=== PATIENT | female | born 1990 | race Caucasian/White ===

== ENCOUNTER → 2021-08-30 09:05 | Outpatient (BNVA) | payer OTHER, SELFPAY | PROVIDERS: Visit Provider Nurse Practitioner Women's Health | DX: O21.9 Vomiting of pregnancy, unspecified (principal); N92.6 Irregular menstruation, unspecified; Z3A.00 Weeks of gestation of pregnancy not specified | CPT/HCPCS: 81025 ==

== ENCOUNTER → 2021-09-27 09:35 | Outpatient (BNVA) | payer OTHER, SELFPAY | PROVIDERS: Visit Provider Obstetrics & Gynecology | DX: Z34.90 Encounter for supervision of normal pregnancy, unspecified, unspecified trimester (principal) | CPT/HCPCS: 80307; 84315; 85027; 86592; 86762; 86803; 86850; 86900; 87077; 87086; 87184; 87340; 87491; 87591 ==

== ENCOUNTER 2021-10-06 16:07 | Outpatient (CLI) | payer OTHER, SELFPAY ==
--- NOTE | 2021-10-06 16:00 | US_ITS ---
WS: [id number] ULTRASOUND OB LIMITED TECHNIQUE: Limited ultrasound examination of the fetus. CLINICAL INFORMATION: Z34.90 - Encounter for supervision of normal , u... COMPARISON: None. FINDINGS: Closed cervix measures 3.6 cm. Single interuterine gestation. presentation is transverse Placental location is fundal. Placenta grade: 0. heart rate 176 BPM. Placenta previa with complete coverage of the cervical os. Recommend 3rd trimester follow-up. Anatomy: BDP: 2.5 cm = 14w2d HC: 9.6 cm = 14w3d AC: 7.5 cm = 14w0d FEMUR LENGTH: 1.3 cm = 13w6d Estimated weight: 87 g., %. EGA by ultrasound: 14w1d NAYANA by ultrasound: 04/05/2022 US/US OB <= 14 weeks fetus [id number] IMPRESSION: 1. Presentation is transverse with complete placenta previa. Leads coverage of the cervical os. Placenta is fundal. Recommend 3rd trimester follow-up. 2. Normal LEFT ovary. RIGHT ovary not visualized. 3. Small amount of free fluid in the RIGHT adnexa. Small amount of fluid about the LEFT ovary. 4. Estimated gestational age 14 weeks 1 day. Estimated delivery April 05 023.
== END 2021-10-06 16:08 | disposition home or self-care (01) ==
PROVIDERS: Absent Provider Obstetrics & Gynecology; Visit Provider Obstetrics & Gynecology
DX: Z34.92 Encounter for supervision of normal pregnancy, unspecified, second trimester; Z3A.14 14 weeks gestation of pregnancy
CPT/HCPCS: 76801

== ENCOUNTER → 2021-10-28 13:36 | Outpatient (BNVA) | payer OTHER, SELFPAY | PROVIDERS: Visit Provider Nurse Practitioner Women's Health | DX: O09.899 Supervision of other high risk pregnancies, unspecified trimester (principal); O34.219 Maternal care for unspecified type scar from previous cesarean delivery; O21.9 Vomiting of pregnancy, unspecified; Z3A.00 Weeks of gestation of pregnancy not specified | CPT/HCPCS: 84315; 87086 ==

== ENCOUNTER → 2021-11-22 12:55 | Outpatient (BNVA) | payer OTHER, SELFPAY | PROVIDERS: Visit Provider Obstetrics & Gynecology | DX: Z36.87 Encounter for antenatal screening for uncertain dates (principal) | CPT/HCPCS: 76805 ==

== ENCOUNTER → 2021-11-29 10:42 | Outpatient (BNVA) | payer OTHER, SELFPAY | PROVIDERS: Visit Provider Obstetrics & Gynecology | DX: O09.899 Supervision of other high risk pregnancies, unspecified trimester (principal); Z3A.00 Weeks of gestation of pregnancy not specified | CPT/HCPCS: 84315; 87086 ==

== ENCOUNTER → 2021-12-22 10:45 | Outpatient (BNVA) | payer OTHER, SELFPAY | PROVIDERS: Visit Provider Nurse Practitioner Women's Health | DX: O09.899 Supervision of other high risk pregnancies, unspecified trimester (principal); D69.6 Thrombocytopenia, unspecified; O99.119 Other diseases of the blood and blood-forming organs and certain disorders involving the immune mechanism complicating pregnancy, unspecified trimester; O34.219 Maternal care for unspecified type scar from previous cesarean delivery; O21.9 Vomiting of pregnancy, unspecified; Z3A.00 Weeks of gestation of pregnancy not specified | CPT/HCPCS: 82950; 84315; 85025 ==

== ENCOUNTER → 2022-01-06 14:01 | Outpatient (BNVA) | payer OTHER, SELFPAY | PROVIDERS: Visit Provider Nurse Practitioner Women's Health | DX: Z36.87 Encounter for antenatal screening for uncertain dates (principal) | CPT/HCPCS: 76816 ==

== ENCOUNTER 2022-03-31 19:56 | Inpatient (IN) | payer OTHER, SELFPAY ==
[2022-03-31] VITALS (19 sets, daily range): BP systolic 97–121; BP diastolic 48–81; PULSE 63–93; RESP 15–22; TEMP 36.2–36.8; O2SAT 99–100; BMI 31.1
[2022-03-31] MEDS: lactated ringers 1,000 ML 999 ML IV ×2 (18:43→21:12)
[2022-03-31] MEDS: ampicillin 2,000 MG in sodium chloride 0.9% (plus) 50 ML 100 MG IV (18:43)
[2022-03-31 19:40] LABS: Basophils % 0.1 %; Eosinophils # 0.1 10^3/uL (0.0-0.8); Eosinophils % 0.5 %; Hematocrit 37.9 % (37.0-47.0); Hemoglobin 12.9 g/dL (11.5-15.3); Lymphocytes # 1.5 10^3/uL (0.8-4.8); Lymphocytes % 14.6 %; Mean Corpuscular Hemoglobin 30.8 pg (28.0-34.0); Mean Corpuscular Volume 90.5 fl (81-99); Mean Platelet Volume 12.7 fL (7.4-10.4); Monocytes # 0.7 10^3/uL (0.2-0.9); Monocytes % 6.6 %; Neutrophils # 8.02 10^3/uL (1.8-7.7); Neutrophils % 77.8 %; Nucleated Red Blood Cells % 0 %; Platelet Count 188 10^3/cmm (130-400); Red Blood Count 4.19 10^6/uL (4.1-5.3); Red Cell Distribution Width 12.4 % (12.1-15.1); White Blood Count 10.3 10^3/uL (4.0-10.0)
[2022-03-31] MEDS: famotidine 20 mg/2 mL INJ IVP (21:21)
[2022-03-31] MEDS: ceFAZolin 2,000 MG in sodium chloride 0.9% (plus) 50 ML 100 MG IV (21:22)
[2022-03-31] MEDS: metoclopramide 5 mg/mL SDV 2 mL 10 MG IVP (21:22)
[2022-03-31] MEDS: citric acid-sodium citrate 30 mL UDC PO (21:22)
--- NOTE | 2022-03-31 21:27 | ANES.PREANE2 ---
Pre-Anesthetic Assessment Height/Weight: Height 1.57 m Weight 77.111 kg Temp Pulse Resp BP 97.2 F L 93 18 117/74 03/31/22 19:58 03/31/22 21:11 03/31/22 20:28 03/31/22 21:11 C section Familial anesthetic complications: nausea Was Beta Shabana taken within 24 hours: N/A Was Clonidine taken within 24 hours: N/A Last intake: 5:30 Social No alcohol and No tobacco Exam alert, oriented x 3, clear to auscultation bilaterally and regular rate & rhythm Airway Mallampati: Class I Dentition: chipped Anesthetic Plan ASA status: 2E Anesthesia: Regional (specify below) Risk of > 500 ml blood loss (7ml/kg in children): Yes, adequate IV access and fluids planned Medications/Allergies Home Medications Medication Instructions Recorded Confirmed Last Taken Type prenat.vits,pina,plr-kspy-ixwex 1 tab PO DAILY 10/28/21 12/22/21 Unknown History Allergies Allergy/AdvReac Type Severity Reaction Status Date / Time No Known Allergies Allergy Verified 12/22/21 15:58 Current Medications Generic Name Dose Route Start Last Admin Trade Name Freq PRN Reason Stop Dose Admin Lactated Ringer's 1,000 mls @ 999 mls/hr 03/31/22 18:17 03/31/22 18:43 Lactated Ringers IV 999 mls/hr .Q1H1M PRN Administration BLEEDING Lactated Ringer's 1,000 mls @ 999 mls/hr 03/31/22 21:01 03/31/22 21:12 Lactated Ringers IV 03/31/22 22:01 999 mls/hr .Q1H1M ONE Administration Cefazolin Sodium 2,000 mg/ 50 mls @ 100 mls/hr 03/31/22 21:01 03/31/22 21:22 Sodium Chloride IV 03/31/22 21:30 100 mls/hr STITCHER UTILITY ONE Administration Protocol [facility] Anesthesia Medical History No pertinent past medical history neghx: htn,dm,thyroid,dvt/pe PCP: None Surgical History Hx of section (~2013) 2014 due to breech presentation at [facility] Hx of wisdom tooth extraction (~2005) Family History Denies family history of Colon cancer Ovarian cancer Diabetes Heart disease Hypercholesteremia Breast cancer Hypertension Uterine cancer Thyroid disease Stroke Social History Smoking and tobacco status: never smoked Data Anesthesia 03/31/22 18:15 Short CBC 03/31/22 Range/Units 18:15 WBC 10.3 H (4.0-10.0) 10^3/uL Hgb 12.9 (11.5-15.3) g/dL Hct 37.9 (37.0-47.0) % MCV 90.5 (81-99) fl Plt Count 188 (130-400) 10^3/cmm Neut % (Auto) 77.8 % Neut # (Auto) 8.02 H (1.8-7.7) 10^3/uL Cardiac Studies: No Data to Display
--- NOTE | 2022-03-31 21:50 | PC.NURSE ---
After patient taken to OR doppler performed x4 times to ensure no distress r/t malpresentation. FHT in the 140s and 130s every time doppler obtained. Dr. Archer gave verbal orders to continue with spinal and urgent protocol.
--- NOTE | 2022-03-31 22:30 | PM.OBGYHP ---
Providers/Chief Complaint Admitting Physician: Tommy Archer MD Chief Complaint: contraction HPI [facility] [employer] History of Present Illness Leatha Lee is a 32 year old para 5 para 4-0-0-4 female at 38 weeks and 6 days who presented with contractions and cervical change. She had been seen the day prior in my office and was found to be 2 cm dilated. Today she began having more painful contractions and came in for evaluation. She was found to be 5 cm dilated. Her had otherwise been unremarkable. Her labs are as follows. Her blood type is O+. Antibody screen was negative. She declined an HIV test. Her Pap smear was within normal limits. She was GBS positive. Rubella immune. The remainder of her infectious disease profile was within normal limits. Because she had had 4 previous pregnancies, was GBS positive, and was 5 cm dilated, we elected to keep the patient so that she could have adequate treatment with antibiotics prior to delivery of the patient. She had also had a previous , and desired a [place]. Present Details Para: 5 Review of Systems General: Reports: 10 or more systems reviewed and unremarkable except in HPI and below Const: Reports: fatigue; Denies: fever(s) Eyes: Denies: change in vision Card: Denies: chest pain Musc: Reports: back pain Jaden/Lymph: Denies: easy bruising Medications/Allergies Home Medications Medication Instructions Recorded Confirmed Last Taken Type prenat.vits,pina,dba-crox-lapqx 1 tab PO DAILY 10/28/21 12/22/21 Unknown History Allergies Allergy/AdvReac Type Severity Reaction Status Date / Time No Known Allergies Allergy Verified 12/22/21 15:58 PFSH [employer] PFSH: Medical History No pertinent past medical history neghx: htn,dm,thyroid,dvt/pe PCP: None Surgical History Hx of section (~2013) 2014 due to breech presentation at [facility] Hx of wisdom tooth extraction (~2005) Family History Denies family history of Colon cancer Ovarian cancer Diabetes Heart disease Hypercholesteremia Breast cancer Hypertension Uterine cancer Thyroid disease Stroke Social History Smoking and tobacco status: never smoked History History History 5 Term 4 0 Miscarriages/Ectopic 0 Living Children 4 Care NAYANA Calculator Estimated Delivery Date Method Current WG Current Estimate 04/08/22 LMP (Certain) 38w 6d Other Estimates 04/05/22 Ultrasound #1 39w 2d Specific Issues/Plans --- successful x 3 NEED OR RECORDS Thrombocytopenia; intake platelets 145; Rpt at 24 wks Asymptomatic bacteriuria at 12 weeks; treated with Macrobid; test of cure at 16 weeks--negative N/V-resolved Evaluate anatomy not well visualized; outflow tracts not well visualized; repeat scan 24-26 weeks Vitals/I&O/Wt Last Vital Signs Temp 97.2 F L 03/31/22 19:58 Pulse 93 03/31/22 21:11 Resp 18 03/31/22 20:28 BP 117/74 03/31/22 21:11 03/31/22 03/31/22 03/31/22 06:59 14:59 22:59 Intake Total 50 / 50 Balance 50 / 50 Weight last 48 hrs Weight 170 lb Weight 170 lb Physical Exam Const: COMMON NORMALS: patient oriented x3 and alert HENMT: COMMON NORMALS: moist oral mucous membranes HEAD & SCALP: normal to inspection Chest: COMMONS NORMALS: normal inspection of the chest Resp: COMMON NORMALS: clear to auscultation bilaterally AUSCULTATION: clear to auscultation bilaterally Cardio: COMMON NORMALS: regular rate and regular rhythm RATE: regular rate RHYTHM: regular rhythm GI: INSPECTION: Yes normal to inspection and Yes other (Gravid) Extremity: COMMON NORMALS: normal to inspection GENERAL: Yes edema (Trace) Neuro: COMMON NORMALS: patient oriented x3, moves all extremities and no sensory deficits noted SENSORIUM/ORIENTATION: Yes alert Psych: COMMON NORMALS: mental status grossly normal Skin: COMMON NORMALS: no rashes or lesions noted GENERAL SKIN EXAM: no rashes or lesions noted Data 03/31/22 18:15 A&P Assessment and plan (1) 38 weeks gestation of : (2) History of delivery, antepartum: (3) Active labor: (4) Footling breech presentation: We initially planned on doing a trial of labor after section. When I broke her water, she went from a vertex position to a footling breech position. As a result, we proceeded with a section. Attestations Medical Necessity Statement*: I anticipate and routine post care. Coding Level of Care Code Acute Code for Chg Fwd Diagnoses 38 weeks gestation of Z3A.38 History of delivery, antepartum O34.219 Active labor Footling breech presentation O32.8XX0
--- NOTE | 2022-03-31 22:37 | PM.OP ---
Operative Report Date of procedure: March 31, 2022 Pre-op diagnosis: 1. 32-year-old 5 para 4-0-0-4 2. 38 weeks estimated gestational age 3. Footling breech presentation Procedure done: Repeat lower transverse section Specimens removed/disposition: 1. Female with a weight of 6 pounds 4 ounces and Apgars of 4 and 9 2. Placenta with a three-vessel cord delivered intact Pathology: None Surgeon: Tommy Archer Estimated blood loss (mL): 500 Complications: None Procedure: The patient was brought back to the operating room where she was prepped and draped in usual sterile fashion. Anesthesia was found to be adequate. A lower transverse skin incision was then made with a #10 blade. I then dissected down to the underlying subcutaneous tissue until arriving at the prerectal fascia. The fascia was then nicked with the scalpel bilaterally. The fascial incisions were then carried laterally with Hansen scissors. Attention was then turned to the superior aspect of the incision which was grasped with kochers and tented up away from the underlying rectus abdominis muscles. The muscles were then dissected away from the fascia manually, and later with Hansen scissors. Attention was then turned to the inferior aspect of the incision, and the fascia was dissected away from the underlying muscle in similar fashion. The rectus abdominis muscles were then spread manually. The peritoneum was entered manually. Excellent visualization of the uterus was noted. A lower transverse uterine incision was then made with a #10 blade. Upon arriving at the intrauterine cavity, the uterine incision was then extended manually. The infant was noted to have a compound presentation with both the head and feet at the site of the incision. I initially tried to rotate the so that it could be a vertex delivery, but without success. I then rotated the head back to perform a footling delivery. After the baby was completely delivered. The cord was then cut and clamped, and the baby was handed to Dr. Valencia and nurses. There was no meconium. There was no nuchal cord. The placenta was removed intact. The uterus was externalized. The intrauterine cavity was cleansed of any remaining debris. The uterine incision was reapproximated in 2 layers. The first layer was performed with 0 Vicryl in a running locked stitch. The second layer was an imbricating stitch also using 0 Vicryl. The uterus was replaced into the abdomen. The peritoneum was then irrigated with warm saline. I reexamined the uterine incision and found it to be hemostatic. The rectus abdominis muscles were then reapproximated using 0 Vicryl in a running stitch. The fascia was then reapproximated using 0 Vicryl in running stitch. Subcutaneous tissue was then reapproximated with 0 Vicryl in a running stitch. The skin was reapproximated using sisi. A sterile dressing was placed. All counts were correct x2. Both the mother and baby were in stable condition.
[2022-04-01] VITALS (22 sets, daily range): BP systolic 92–110; BP diastolic 52–68; PULSE 64–90; RESP 16; TEMP 36.2–36.6; O2SAT 73
[2022-04-01] MEDS: oxytocin 30 UNIT/500 ML BAG 600 UNIT IV (00:15)
[2022-04-01] MEDS: lactated ringers 1,000 ML 999 ML IV (02:41)
[2022-04-01] MEDS: dextrose 5%-lactated ringers 1,000 ML 125 ML IV (05:24)
[2022-04-01] MEDS: ketorolac 30 mg/mL INJ IVP ×2 (05:24→11:44)
--- NOTE | 2022-04-01 07:30 | P.PN_ITS ---
[employer] Subjective Subjective: Interval history: Overall, the patient has had a good night. She did have 1 episode of passing a larger clot and some bleeding. Other than that she has done very well. She has been breast-feeding well. Her pain has been well controlled to this point. Labor: Station: -2 Amniotic Membrane Status: Ruptured Monitor Mode: Palpation Contraction Pattern: Occasional Status: Category I Vitals/I&O/Wt Last Vital Signs Temp 98.2 F 03/31/22 22:30 Pulse 84 04/01/22 06:36 Resp 16 04/01/22 01:15 BP 102/52 04/01/22 06:36 Pulse Ox 100 03/31/22 22:55 O2 Del Method 03/31/22 22:55 03/31/22 04/01/22 04/01/22 22:59 06:59 14:59 Intake Total 883.2 / 883.2 1550.00 / 2433.20 Output Total 600 / 600 300 / 900 Balance 283.2 / 283.2 1250.00 / 1533.20 Weight last 48 hrs Weight 170 lb Weight 170 lb Physical Exam Narrative: She is in no acute distress Lungs are clear auscultation bilaterally Her heart has a regular rate and rhythm Her fundus is below the umbilicus and firm Her dressing is clean, dry and intact Her extremities have trace edema Urinary Catheter Management: Ribeiro Latex: Cath Placed During This Visit: yes Urinary Catheter Date of Insertion: 03/31/22 Urinary Catheter Time of Insertion: 21:15 Data 03/31/22 18:15 A&P Assessment and plan (1) Status post : The patient has done very well so far. I am hopeful that she will have a routine post hospital stay. Attestations Medical Necessity Statement*: I anticipate routine post care Coding Level of Care Code Acute Code for Chg Fwd Diagnoses Status post Z98.891
--- NOTE | 2022-04-01 09:01 | ANE.PACU2 ---
Inpatient post-anesthesia follow up: Airway intact: Yes Vital signs: Temperature 98.2 F Pulse Rate 71 Respiratory Rate 16 Blood Pressure 92/54 Pulse Oximetry 100 Oxygen Delivery Me thod Room Air Oxygen Flow Rate Fraction of Inspir ed Oxygen Hydration adequate: Yes Nausea and vomiting: No Pain level: 2 Mental status: Baseline Additional Comments: itching
[2022-04-01 09:47] LABS: Hematocrit 33.4 % (37.0-47.0); Hemoglobin 11.2 g/dL (11.5-15.3); Mean Corpuscular HGB Conc 33.5 g/dL (30.0-36.0); Mean Corpuscular Hemoglobin 30.9 pg (28.0-34.0); Platelet Count 148 10^3/cmm (130-400); Red Blood Count 3.63 10^6/uL (4.1-5.3); Red Cell Distribution Width 12.4 % (12.1-15.1); White Blood Count 8.8 10^3/uL (4.0-10.0)
[2022-04-01] MEDS: docusate sodium 100 mg Capsule PO ×2 (11:57→19:13)
[2022-04-01] MEDS: prenatal vitamin Capsule 1 CAP PO (11:57)
[2022-04-01] MEDS: ibuprofen 800 mg tablet PO ×2 (16:06→20:51)
[2022-04-01] MEDS: acetaminophen 325 mg Tablet 650 MG PO (19:13)
[2022-04-01] MEDS: simethicone 80 mg Chew PO (21:53)
[2022-04-01] MEDS: HYDROcodone-acetaminophen 5-325 mg Tablet PO (22:54)
[2022-04-02] VITALS (7 sets, daily range): BP systolic 97–110; BP diastolic 61–73; PULSE 61–85; RESP 16–18; TEMP 36.3–36.8; O2SAT 97–98
[2022-04-02] MEDS: HYDROcodone-acetaminophen 5-325 mg Tablet PO ×2 (05:32→21:07)
[2022-04-02] MEDS: prenatal vitamin Capsule 1 CAP PO (07:56)
[2022-04-02] MEDS: docusate sodium 100 mg Capsule PO ×2 (07:56→20:03)
[2022-04-02] MEDS: acetaminophen 325 mg Tablet 650 MG PO ×3 (07:56→20:04)
[2022-04-02] MEDS: ibuprofen 800 mg tablet PO ×3 (08:56→21:04)
--- NOTE | 2022-04-02 09:21 | PM.OBGYDC ---
Discharge Providers ASBESTOS SIDING INSTALLER Date of Admission: 03/31/22 19:56 Date of Discharge: 04/03/22 Attending Provider at Admission: Tommy Archer MD Attending Provider at Discharge: Tommy Archer MD Diagnoses at Discharge Discharge Diagnosis (1) Status post : Details from hospital stay: The patient will be discharged home today. I will see her back in my office in 2 days for staple removal. Status: Acute Reason for Visit Reason for Visit: contraction Hospital Course Hospital Course The patient presented to the hospital in active labor. The baby was noted to be in vertex position. An amniotomy was performed. At the time of the amniotomy, the baby's head shifted out of position and the feet were noted to be at the cervix. As result a was performed. At the time of the , the baby was noted to have both feet and head near the cervix. After attempting to deliver the baby from a vertex position, the baby was ultimately delivered from a footling breech position. The was otherwise unremarkable. The patient's course was also unremarkable. She breast-fed well. Her bleeding was within normal limits. Her pain was well controlled. Her vitals were appropriate. There were no concerns. Information Peripartum Data: Infant Delivery Method: Physical Exam Narrative: She is in no acute distress Lungs are clear auscultation bilaterally Her heart has a regular rate and rhythm Her fundus is below the umbilicus and firm Her dressing is clean, dry and intact Her extremities have trace edema Urinary Catheter Management: Ribeiro Latex: Cath Placed During This Visit: yes, but has since been removed by the nurse Reason for Continuing Indwelling Catheter: Decision to DC Catheter Urinary Catheter Date of Insertion: 03/31/22 Urinary Catheter Time of Insertion: 21:15 Date Urinary Catheter Removed: 04/01/22 Time Urinary Catheter Discontinued: 18:07 History History History 5 Term 4 0 Miscarriages/Ectopic 0 Living Children 4 Discharge Data Studies Completed and Pending Laboratory Results WBC 8.8 10^3/uL (4.0-10.0) 04/01/22 09:15 RBC 3.63 10^6/uL (4.1-5.3) L 04/01/22 09:15 Hgb 11.2 g/dL (11.5-15.3) L 04/01/22 09:15 Hct 33.4 % (37.0-47.0) L 04/01/22 09:15 MCV 92.0 fl (81-99) 04/01/22 09:15 MCH 30.9 pg (28.0-34.0) 04/01/22 09:15 MCHC 33.5 g/dL (30.0-36.0) 04/01/22 09:15 RDW 12.4 % (12.1-15.1) 04/01/22 09:15 Plt Count 148 10^3/cmm (130-400) 04/01/22 09:15 MPV 12.0 fL (7.4-10.4) H 04/01/22 09:15 Neut % (Auto) 77.8 % 03/31/22 18:15 Lymph % (Auto) 14.6 % 03/31/22 18:15 [place] % (Auto) 6.6 % 03/31/22 18:15 Eos % (Auto) 0.5 % 03/31/22 18:15 Baso % (Auto) 0.1 % 03/31/22 18:15 Neut # (Auto) 8.02 10^3/uL (1.8-7.7) H 03/31/22 18:15 Lymph # (Auto) 1.5 10^3/uL (0.8-4.8) 03/31/22 18:15 [place] # (Auto) 0.7 10^3/uL (0.2-0.9) 03/31/22 18:15 Eos # (Auto) 0.1 10^3/uL (0.0-0.8) 03/31/22 18:15 Baso # (Auto) 0.0 10^3/uL (0.0-0.1) 03/31/22 18:15 Nucleated RBC % (auto) 0 % 03/31/22 18:15 Nucleated RBCs # 0.0 /100WBC 03/31/22 18:15 Vitals Last Vital Signs Temp 97.3 F L 04/02/22 04:42 Pulse 70 04/02/22 04:42 Resp 16 04/01/22 16:14 BP 97/61 04/02/22 04:42 Pulse Ox 73 L 04/01/22 16:14 O2 Del Method 04/01/22 16:14 Discharge Plan Discharge Patient Disposition: Home Condition: Stable Prescriptions: New ibuprofen 800 mg Tablet 800 mg PO TID Qty: 45 0RF hydrocodone-acetaminophen 5-325 mg Tablet 1 tab PO Q6H PRN (Reason: Moderate To Severe Pain) Qty: 28 0RF Continued prenat.vits,pina,jrc-[id number]-[id number] Tablet 1 tab PO DAILY Discharge Orders: Discharge Order (Routine); Ordered 04/03/22 Ordered By: Tommy Archer Referrals: Tommy Archer MD [Physician] - 04/05/22 (Please make sure patient has appointment set up for Sunday prior to discharge.) Discharge Diet: Usual diet Discharge Activity: Limit activity as instructed Patient Instructions: Depression (DC), Bleeding (DC), Preeclampsia and Eclampsia After Delivery (GEN), OB - Gianni/Mikey, OB Discharge Report, OB Food/Drug Interaction Guide, Opioid Safety, OB Home Care, OB Proud Parent Packet Discharge Attestations ASBESTOS SIDING INSTALLER Time Spent in Discharge Care*: less than 30 min Coding Level of Care Code Acute Code for Chg Fwd Diagnoses Status post Z98.891
[2022-04-03] MEDS: HYDROcodone-acetaminophen 5-325 mg Tablet PO (04:35)
[2022-04-03 04:37] VITALS: BP 107/66; PULSE 74; TEMP 36.1
[2022-04-03] MEDS: docusate sodium 100 mg Capsule PO (08:59)
[2022-04-03] MEDS: prenatal vitamin Capsule 1 CAP PO (08:59)
[2022-04-03] MEDS: acetaminophen 325 mg Tablet 650 MG PO (08:59)
[2022-04-03] MEDS: ibuprofen 800 mg tablet PO (10:49)
[2022-04-03 11:19] VITALS: BP 112/75; PULSE 70
[2022-04-03 11:25] VITALS: BP 112/75; PULSE 70
== END 2022-04-03 11:25 | disposition home or self-care (01) | DRG 787 ==
LOC: OPOB 19:56 → OBGYN 19:56
PROVIDERS: Admitting Provider Family Medicine; Visit Provider Family Medicine
PROC: 10D00Z1 Extraction of Products of Conception, Low, Open Approach (ICD-10-PCS; CPT 59514; principal; 2022-03-31 21:30)
DX: O32.8XX0 Maternal care for other malpresentation of fetus, not applicable or unspecified (principal); O99.12 Other diseases of the blood and blood-forming organs and certain disorders involving the immune mechanism complicating childbirth; O99.824 Streptococcus B carrier state complicating childbirth; D69.6 Thrombocytopenia, unspecified; Z3A.38 38 weeks gestation of pregnancy; Z37.0 Single live birth; O34.211 Maternal care for low transverse scar from previous cesarean delivery
CPT/HCPCS: 12345; 36415; 51702; 59025; 59409; 85025; 85027; 96374; 96376; 99211; J0290; J0690; J1885; J2274; J2590; J2765; J3490; J7120; J7121

== ENCOUNTER → 2023-05-22 13:59 | Outpatient (BNVA) | payer OTHER, SELFPAY | PROVIDERS: Visit Provider Family Medicine | DX: Z00.00 Encounter for general adult medical examination without abnormal findings (principal); M54.50 Low back pain, unspecified; R10.13 Epigastric pain | CPT/HCPCS: 80053; 80061; 84443; 85025 ==

== ENCOUNTER → 2023-07-05 08:27 | Outpatient (BNVA) | payer OTHER, SELFPAY | PROVIDERS: PCP Family Medicine; Visit Provider Family Medicine | DX: Z34.90 Encounter for supervision of normal pregnancy, unspecified, unspecified trimester (principal) | CPT/HCPCS: 81025; 84702 ==

== ENCOUNTER → 2023-07-06 10:18 | Outpatient (BNVA) | payer OTHER, SELFPAY | PROVIDERS: PCP Family Medicine; Visit Provider Family Medicine | DX: Z00.00 Encounter for general adult medical examination without abnormal findings (principal); M54.50 Low back pain, unspecified; R10.13 Epigastric pain | CPT/HCPCS: 84702 ==

== ENCOUNTER 2023-07-20 13:23 | Outpatient (CLI) | payer OTHER, SELFPAY ==
--- NOTE | 2023-07-20 13:45 | US_ITS ---
WS: [id number] EARLY OBSTETRICAL ULTRASOUND (<14 WEEKS). HISTORY: Z34.90 - Encounter for supervision of normal , u... COMPARISON: None available. Single intrauterine gestational sac is identified. Sac measurement of 1.4 cm corresponds to a gestati on of 6 weeks and 2 days. There is a yolk sac present but no pole or cardiac activity. There is a large subchorionic hemorrhage encasing greater than 50% of the gestational sac. No free fluid. Normal RIGHT ovary. LEFT ovary is not identified. Cervix is closed. US/US OB <=14 wk fetus w transvag IMPRESSION: 1. No intrauterine gestation can be confirmed at this time. There is a gestati onal sac and a yolk sac but no pole or crown-rump length. By sac diameter gestational age is 6 weeks and 2 days. At this age it is expected to visualize a crown-rump length with cardiac activity. Findings are suspicious for a bligh amira ovum. To confirm no viability consider 1 week transvaginal ultrasound follo w-up. 2. Large subchorionic hemorrhage.
== END 2023-07-20 13:24 | disposition home or self-care (01) ==
LOC: RAD 13:23
PROVIDERS: PCP Family Medicine; Visit Provider Family Medicine
DX: Z34.90 Encounter for supervision of normal pregnancy, unspecified, unspecified trimester (principal)
CPT/HCPCS: 76801; 76817

== ENCOUNTER 2023-07-30 14:58 | Outpatient (CLI) | payer OTHER, SELFPAY ==
--- NOTE | 2023-07-30 15:00 | US_ITS ---
WS: [id number] EARLY OBSTETRICAL ULTRASOUND (<14 WEEKS). HISTORY: f/u possible blighted ovum COMPARISON: 07/20/2023 Single intrauterine gestational sac is identified. Gestational sac measurement, mean diameter of 1.4 cm corresponds to gestational age of 6 weeks and 2 days. Gestational age has not increased since the prior examination. There is a yolk sac noted but no definite pole. There is a small focus of in creased echogenicity adjacent to the yolk sac. There is no cardiac activity. Again noted is a large c ircumferential subchorionic hemorrhage. The hemorrhage has decreased in size. Adjacent to the gestational sac is increasing heterogeneity suggesting the sac may be involuting. Cer vix is closed. US/US OB <=14 wk fetus w transvag IMPRESSION: 1. Gestational sac measurement corresponds to a gestational age of 6 weeks and 2 days. No increase in size of the sac since 07/20/2023. 2. Yolk sac is again noted but no pole or cardiac activity can definitel y be identified. Findings are consistent with a blighted ovum. 3. Subchorionic hemorrhage is decreasing in size.
== END 2023-07-30 14:59 | disposition home or self-care (01) ==
LOC: RAD 14:59
PROVIDERS: PCP Family Medicine; Visit Provider Family Medicine
DX: O20.8 Other hemorrhage in early pregnancy (principal); Z3A.01 Less than 8 weeks gestation of pregnancy
CPT/HCPCS: 76801; 76817

== ENCOUNTER → 2023-09-06 11:49 | Outpatient (BNVA) | payer OTHER, SELFPAY | PROVIDERS: PCP Family Medicine; Visit Provider Family Medicine | DX: D64.9 Anemia, unspecified (principal) | CPT/HCPCS: 85025 ==

== ENCOUNTER → 2023-11-28 11:51 | Outpatient (BNVA) | payer OTHER, SELFPAY | PROVIDERS: PCP Family Medicine; Visit Provider Family Medicine | DX: R30.0 Dysuria (principal) | CPT/HCPCS: 81000 ==

== ENCOUNTER 2023-12-31 12:51 | Emergency (ER) | payer OTHER, SELFPAY ==
--- NOTE | 2023-12-31 12:57 | ECG_ITS ---
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 Measurements Intervals [place] Rate: 127 P: 80 LA: 112 QRS: 50 QRSD: 76 T: 50 QT: 335 QTc: 489 Interpretive Statements SINUS TACHYCARDIA WITH SHORT LA INTERVAL NONSPECIFIC T-WAVE ABNORMALITY ABNORMAL RHYTHM ECG No previous ECG available for comparison Electronically Signed On 01-05-2024 15:57:41 RN CLINICAL by Dina Oscar M.D. [email or web address]
[2023-12-31 13:00] VITALS: BP 114/77; PULSE 119; RESP 20; TEMP 36.8; O2SAT 99; BMI 25.6
--- NOTE | 2023-12-31 13:01 | XRR_ITS ---
PROCEDURE INFORMATION: Exam: XR Chest Exam date and time: 12/31/2023 1:43 PM Age: 33 years old Clinical indication: Cough and dyspnea and shortness of breath; Additional info: Dyspnea/cough TECHNIQUE: Imaging protocol: Radiologic exam of the chest. Views: 1 view. Total images: 1319 COMPARISON: No relevant prior studies available. FINDINGS: Lungs: Unremarkable. No consolidation. Pleural spaces: Unremarkable. No pleural effusion. No pneumothorax. Heart/Mediastinum: Unremarkable. No cardiomegaly. Bones/joints: Unremarkable. XR/XR chest 1V portable [id number] IMPRESSION: No acute findings.
--- NOTE | 2023-12-31 13:02 | ED_ITS ---
HPI - SOB/Dyspnea 2 General: Chief Complaint: Abdominal Pain Stated Complaint: SOB Time Seen by Provider: 12/31/23 13:01 History of Present Illness: HPI Narrative: 33-year-old female presents to the emerg ency room with complaints of persistent cough myalgias headache. She is approximately 8 weeks . Subjective fever. Cough nonproductive. Associated symptoms: Deny abdominal pain, chest pain or fever(s) Related Data Home Medications Medication Instructions Recorded Confirmed multivitamin 1 tab PO DAILY 12/31/23 12/31/23 Previous Rx's Medication Instructions Recorded albuterol sulfate 2.5 mg/3 mL 2.5 mg (3 mL) inhalation Q4H PRN 12/31/23 (0.083 %) solution for nebulization shortness of breath or wheezing #180 mL prednisone 20 mg tablet 20 mg PO TID #15 tabs 12/31/23 Allergies Allergy/AdvReac Type Severity Reaction Status Date / Time No Known Allergies Allergy Verified 12/31/23 13:07 Review of Systems 2 Const: Denies: fever(s) or chills Card: Denies: chest pain Resp: Reports: dyspnea and non-productive cough GI: Denies: abdominal pain : Denies: dysuria, urinary frequency or urinary urgency Musc: Denies: neck pain or back pain Skin/Breast: Denies: rash PFSH ED 2 PFSH: Medical History No pertinent past medical history Surgical History History of 2 sections 2013 & 2022 (both breech presentation) x 3 between the two Hx of wisdom tooth extraction (~2005) Family History Denies family history of Colon cancer Ovarian cancer Diabetes Heart disease Hypercholesteremia Breast cancer Hypertension Uterine cancer Thyroid disease Stroke Social History Smoking and tobacco/nicotine status: never used tobacco/nicotine Alcohol intake: never Substance/Drug Use: never Lives independently: Yes Household members: spouse and children Marital status: Number of children: 5 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 Shira/Orthodox: Quaker Special shira needs: No Agree to transfusion: Yes Physical Exam 2 Const: GENERAL APPEARANCE: cooperative ORIENTATION/CONSCIOUSNESS: Yes awake, Yes oriented to person, Yes oriented to place and Yes oriented to time HENMT: COMMON NORMALS: normocephalic, atraumatic and hearing grossly normal bilaterally HEAD & SCALP: normocephalic and atraumatic Resp: COMMON NORMALS: normal respiratory effort, No retractions and No use of accessory muscles AUSCULTATION: wheezes Cardio: COMMON NORMALS: regular rate, regular rhythm and No murmurs present (Cardio) RATE: regular rate RHYTHM: regular rhythm GI: COMMON NORMALS: Soft to palpation and No hepatosplenomegaly present A USCULTATION: Yes normoactive bowel sounds PALPATION: Yes Soft to palpation, No Tenderness to palpation present (GI), No Guarding due to palpation present (GI) and Yes No hepatosplenomegaly present Extremity: COMMON NORMALS: normal to inspection, capillary refill normal, no clubbing, cyanosis or edema, no calf tenderness and no pedal edema Neuro: SENSORIUM/ORIENTATION: Yes oriented to person, Yes oriented to place and Yes oriented to time Skin: COMMON NORMALS: no rashes or lesions noted GENERAL SKIN EXAM: no rashes or lesions noted Course 2 Vital Signs: Vital signs: Vital Signs Temperature 98.3 F 12/31/23 13:00 Pulse Rate 100 12/31/23 17:05 Respiratory Rate 20 H 12/31/23 13:00 Blood Pressure 102/68 12/31/23 17:05 Pulse Oximetry 100 12/31/23 17:05 Oxygen Delivery Me thod Room Air 12/31/23 16:30 MDM - SOB/Dyspnea Medical Decision Making Overall appears well. Beta-hCG at 124,000 ultrasound confirms intrauterine appears viable. Chest x-ray was negative respiratory panel shows human metapneumovirus this is likely the cause of viral bronchiolitis. Recommend that she not use the Augmentin and the likely cause side effects without any significant improvement in her overall condition. Prednisone taper and also gave her albuterol to use as needed. Follow-up with her primary care if not improving Medical Records I reviewed the patient's medical records. Lab Data I reviewed the patient's lab results. 12/31/23 13:58 Labs/Radiology: Radiology Impressions Chest X-Ray 12/31/23 13:01 IMPRESSION: No acute findings. Obstetrics Ultrasound 12/31/23 15:50 IMPRESSION: 1. Single live intrauterine gestation with normal heart rate. 2. Estimated gestational age 9 weeks 1 day. Laboratory Results WBC 7.91 10^3/uL (3.29-11.43) 12/31/23 13:58 RBC 4.30 10^6/uL (3.85-5.65) 12/31/23 13:58 Hgb 13.60 g/dL (11.27-16.99) 12/31/23 13:58 Hct 37.6 % (36-47) 12/31/23 13:58 MCV 87.4 fl (85-98) 12/31/23 13:58 MCH 31.6 pg (27-33) 12/31/23 13:58 MCHC 36.2 g/dL (30-55) 12/31/23 13:58 RDW 12.4 % (12.1-15.1) 12/31/23 13:58 Plt Count 169 10^3/cmm (157-399) 12/31/23 13:58 MPV 11.2 fL (7.4-10.4) H 12/31/23 13:58 Neut % (Auto) 78.0 % 12/31/23 13:58 Lymph % (Auto) 15.9 % 12/31/23 13:58 [place] % (Auto) 5.2 % 12/31/23 13:58 Eos % (Auto) 0.3 % 12/31/23 13:58 Baso % (Auto) 0.3 % 12/31/23 13:58 Neut # (Auto) 6.18 10^3/uL (1.8-7.7) 12/31/23 13:58 Lymph # (Auto) 1.3 10^3/uL (0.8-4.8) 12/31/23 13:58 [place] # (Auto) 0.4 10^3/uL (0.2-0.9) 12/31/23 13:58 Eos # (Auto) 0.0 10^3/uL (0.0-0.8) 12/31/23 13:58 Baso # (Auto) 0.0 10^3/uL (0.0-0.1) 12/31/23 13:58 Nucleated RBC % (auto) 0 % 12/31/23 13:58 Nucleated RBCs # 0.0 /100WBC 12/31/23 13:58 HCG, Qual Positive (Negative) H 12/31/23 13:58 Ser , Semi-Qnt 980833.00 mIU/mL 12/31/23 13:58 Adenovirus (PCR) Not detected (NOT DETECT) 12/31/23 13:52 C. pneumoniae DNA (PCR) Not detected (NOT DETECT) 12/31/23 13:52 Coronavirus (PCR) Cancelled 12/31/23 13:52 Coronavirus 229E (PCR) Not detected (NOT DETECT) 12/31/23 13:52 Human Metapneumovir PCR Detected (NOT DETECT) A 12/31/23 13:52 Influenza A (H1) PCR Not detected (NOT DETECT) 12/31/23 13:52 Influenza A (PCR) Cancelled 12/31/23 13:52 Influ A (H1/09) PCR Not detected (NOT DETECT) 12/31/23 13:52 Influenza A (H3) PCR Not detected (NOT DETECT) 12/31/23 13:52 Influenza Type A (PCR) Not detected (NOT DETECT) 12/31/23 13:52 Influenza Type B (PCR) Cancelled 12/31/23 13:52 Influenza Type B (PCR) Not detected (NOT DETECT) 12/31/23 13:52 M. pneumoniae (PCR) Not detected (NOT DETECT) 12/31/23 13:52 Parainfluenza 1 (PCR) Not detected (NOT DETECT) 12/31/23 13:52 Parainfluenza 2 (PCR) Not detected (NOT DETECT) 12/31/23 13:52 Parainfluenza 3 (PCR) Not detected (NOT DETECT) 12/31/23 13:52 Parainfluenza 4 (PCR) Not detected (NOT DETECT) 12/31/23 13:52 RSV (PCR) Cancelled 12/31/23 13:52 RSV Type A (PCR) Not detected (NOT DETECT) 12/31/23 13:52 RSV Type B (PCR) Not detected (NOT DETECT) 12/31/23 13:52 Entero/Rhino (PCR) Not detected (NOT DETECT) 12/31/23 13:52 SARS-CoV-2 (PCR) Not detected (NOT DETECT) 12/31/23 13:52 All radiology interpretation(s) finalized by discharge Discharge Plan Discharge Patient Disposition: Home Clinical Impression: Human metapneumovirus pneumonia, First trimester Condition: Stable Prescriptions: New prednisone 20 mg tablet 20 mg PO TID Qty: 15 0RF Rx Instructions: 1 p.o. 3 times daily x3 days, 1 p.o. twice daily x2 days, 1 p.o. daily x2 days albuterol sulfate 2.5 mg /3 mL (0.083 %) solution for nebulization 2.5 mg inhalation Q4H PRN (Reason: shortness of breath or wheezing) Qty: 180 0RF Discontinued amoxicillin-pot clavulanate 875-125 mg tablet 1 tab PO BID 10 Days Qty: 20 0RF No Action multivitamin Tablet 1 tab PO DAILY Discharge Orders: Discharge ED (Routine); Ordered 12/31/23 Ordered By: Yossi Hull Referrals: Tejal Altamirano MD [Primary Care Provider] - Discharge Diet: Usual diet Discharge Activity: Increase activity as tolerated Patient Instructions: Viral Pneumonia (ED), Opioid Safety, Pain Management Activity Restrictions/Additional Instructions: Thank you for choosing [facility] for your healthcare needs today. It is very important that you follow up as instructed or that you return to the Emergency Department should you have concerns or if your condition changes or worsens in any way. You are seen in the emergency room with a cough. Chest x-ray did not show anything acute evaluation of your showed dating consistent with your LMP. Respiratory swab showed human metapneumovirus. This is consistent with your symptoms. This is viral does not require antibiotics recommend that you stop the Augmentin. Do recommend a short course of steroids as well as using albuterol nebulizers every 4 hours as needed for relief of symptoms. Coding Level of Care Code ED Vmware Systems Administrator for Sophie Pedroza
[2023-12-31 13:50] VITALS: BP 112/77; PULSE 109; O2SAT 100
[2023-12-31 14:07] VITALS: BP 105/71; PULSE 97; O2SAT 100
[2023-12-31 14:07] LABS: Basophils % 0.3 %; Eosinophils % 0.3 %; Hematocrit 37.6 % (36-47); Lymphocytes # 1.3 10^3/uL (0.8-4.8); Lymphocytes % 15.9 %; Mean Corpuscular HGB Conc 36.2 g/dL (30-55); Mean Corpuscular Hemoglobin 31.6 pg (27-33); Mean Corpuscular Volume 87.4 fl (85-98); Mean Platelet Volume 11.2 fL (7.4-10.4); Monocytes # 0.4 10^3/uL (0.2-0.9); Monocytes % 5.2 %; Neutrophils # 6.18 10^3/uL (1.8-7.7); Nucleated Red Blood Cells % 0 %; Platelet Count 169 10^3/cmm (157-399); Red Cell Distribution Width 12.4 % (12.1-15.1); White Blood Count 7.91 10^3/uL (3.29-11.43)
[2023-12-31 14:21] LABS: HCG, Serum Qual Positive (Negative)
[2023-12-31 15:30] VITALS: BP 103/66; PULSE 90; O2SAT 100
--- NOTE | 2023-12-31 15:50 | USR_ITS ---
PROCEDURE INFORMATION: Exam: US , Limited Exam date and time: 12/31/2023 4:17 PM Age: 33 years old Clinical indication: Screening exam; Routine US, uterus; Additional info: Eval LABS AND CLINICAL REPORTS: Last menstrual period start date: 11/01/2023 Gestational age (Established): 8 w 4 d Estimated due date (Established): 08/07/2024 TECHNIQUE: Imaging protocol: Real-time ultrasound of the maternal uterus with image documentation. Exam focused on the clinical indication. COMPARISON: US OB <=14 wk fetus w transvag 07/30/2023 3:08 PM FINDINGS: Gestation: Intrauterine gestation. heart rate: 173 bpm BIOMETRY: Gestational age (AUA): Estimated gestational age 9 weeks 1 day by average crown-rump length. MATERNAL: Uterus: Uterus is unremarkable with a single intrauterine gestation visualized. Right ovary/adnexa: 5.7 x 6.1 x 5.1 cm right ovarian cyst likely represents a corpus luteal cyst Bilateral adnexal structures are otherwise unremarkable. US/US OB limited [id number] IMPRESSION: 1. Single live intrauterine gestation with normal heart rate. 2. Estimated gestational age 9 weeks 1 day.
[2023-12-31 16:21] LABS: Adenovirus Not Detected (NOT DETECT); Chlamydia Pneumoniae Not Detected (NOT DETECT); Coronavirus 229E,HKU1,NL63,OC4 Not Detected (NOT DETECT); Human Metapneumovirus Detected (NOT DETECT); Human Rhinovirus/Enterovirus Not Detected (NOT DETECT); Influenza A Not Detected (NOT DETECT); Influenza A H1 Not Detected (NOT DETECT); Influenza A H1-2009 Not Detected (NOT DETECT); Influenza A H3 Not Detected (NOT DETECT); Influenza B Not Detected (NOT DETECT); Mycoplasma Pneumoniae Not Detected (NOT DETECT); Parainfluenza Virus Type 1 Not Detected (NOT DETECT); Parainfluenza Virus Type 2 Not Detected (NOT DETECT); Parainfluenza Virus Type 3 Not Detected (NOT DETECT); Parainfluenza Virus Type 4 Not Detected (NOT DETECT); Respiratory Syncytial Virus A Not Detected (NOT DETECT); Respiratory Syncytial Virus B Not Detected (NOT DETECT); SARS-COV-2 Not Detected (NOT DETECT)
[2023-12-31 16:30] VITALS: BP 102/68; PULSE 91; O2SAT 99
[2023-12-31 17:05] VITALS: BP 102/68; PULSE 100; O2SAT 100
== END 2023-12-31 17:06 | disposition home or self-care (01) ==
PROVIDERS: Emergency Provider Family Medicine; PCP Family Medicine
DX: J12.3 Human metapneumovirus pneumonia (principal); Z3A.09 9 weeks gestation of pregnancy; Z11.52 Encounter for screening for COVID-19
CPT/HCPCS: 36415; 71045; 76815; 84702; 84703; 85025; 87486; 87581; 87633; 93005; 99285

== ENCOUNTER 2024-07-28 05:36 | Inpatient (IN) | payer OTHER, SELFPAY ==
--- OUTSIDE RECORDS SUMMARY | 2014-08-06 04:44 | XMS_ITS | Continuity of Care Document ---
Author Organization [facility] Address [address] [place] [address] Phone Care Team Providers Care Staffing Assistant Name Role Phone Kel Arteaga DO Unavailable Unavailable Allergies, Adverse Reactions, Alerts Substance Reaction Status Criticality No Known Drug Allergies Active No I nformation Medications Medication Instructions Dosage Effective Dates (start - stop) Status Comments metronidazole 500 mg tablet take 1 tablet by ORAL route 2 times every day 500 MG - Active Diflucan 150 mg tablet take 1 tablet by ORAL route now and one in one week 150 MG - Active Mircette (28) 0.15 mg-0.02 mg(21)/0.01 mg(5) tablet take 1 tablet by oral route every day - Active ranitidine 150 mg capsule take 1 capsule by ORAL route 2 times every day - Active Procedures Procedure Date OFFICE/OUTPATIENT VISIT, EST URINALYSIS, AUTO, W/O SCOPE Obtaining screen pap smear PREV VISIT, NEW, AGE 18-39 Advance Directives Directive Yes / No Effective Date File Name No Information Encounters Encounter Description Practice Location Reason(s) For Visit Diagnoses Date Provider Providers Copied on Encounter [facility] Gencia [facility], [address], [place], [id number], [place] tel:[phone] [facility] No Information 5 Chandler Begum. [facility]6 [facility] [place], [id number] , [place]. tel:[phone] OFFICE/OUTPA TIENT VISIT, EST [facility], [address] [place], [place], [id number], [place] tel:[phone] [facility] f/u abd. pain (chief complaint) Abdominal pain, generalizedVaginit is/Vulvovaginitis Sep- 3 Misael Violeta. [address] [facility], [place], [id number]. tel: [phone] PREV VISIT, NEW, AGE 18-39 [facility], [address], [place], [id number], [place] tel:[phone] [facility] preventive exam (chief complaint) Gynecological ExaminationAbdomin al pain, generalizedScreeni ng for malignant neoplasms of the cervix Sep- 3 Misael Mcdaniel. [address] [facility] [place], [address]. tel: [phone] [facility], [address], [place], [id number], [place] tel:[phone] [facility] well woman exam (chief complaint) No Information 3 Misael Violeta. [address] [facility], [place], [id number]. tel: [phone] Family History Family Member Type Diagnosis Age At Onset No Information Payers Payer name Insurance type Covered republican ID Authoriza tion(s) No Information Social History Type Description Quantity Date Captured Comments Sex Female Smoking Status No Information Chief Complaint And Reason For Visit No Information Reason For Referral Reason For Referral No Information History Of Present Illness Encounter Date Complaint History Of Prese nt Illness No Information Functional Status Date Functional Assessmen t No Information Instructions Date Instruction Additional Infor mation Medication Management education bacterial vaginosis education Medication Management education abdominal pain education exercise 30 min 5 x/wk Assessments Type Assessment Date No Information Patient Care Teams Name Effective Dates (start - stop) Status Members No Information
--- OUTSIDE RECORDS SUMMARY | 2021-06-21 09:04 | XMS_ITS | Continuity of Care Document ---
Author Organization Delicia Godinez [facility] Address [facility] [address] [address] Phone Care Team Providers Care Associate Of Science In Nursing Name Role Phone Ruperto Collado DO Unavailable Unavailable Allergies, Adverse Reactions, Alerts Substance Reaction Status Criticality No Known Allergies Active No Inform ation Medications Medication Instructions Dosage Effective Dates (start - stop) Status Comments Zyrtec 10 mg tablet take 1 tablet by ora l route every day 10 MG - Active Procedures Procedure Date OFFICE/OUTPATIENT VISIT, NEW TOBACCO NON-USER SYST BP < 130 MM HG Systolic BP < 140 mmhg DIAST BP < 80 MM HG Diastolic BP < 90 mmhg WEIGHT RECORD BODY MASS INDEX DOCD Advance Directives Directive Yes / No Effective Date File Name No Information Encounters Encounter Description Practice Location Reason(s) For Visit Diagnoses Date Provider Providers Copied on Encounter Delicia Godinez [facility] , [facility] [place] [address], [address], [place] tel:[phone] [facility] [address] No Information 2 Heaven Hickey. [address] [facility], [id number] [facility], [place], [place], [id number] , [place]. tel:[phone] OFFICE/OUTPAT IENT VISIT, REBEKAH Godinez [facility] , [employer]ANG[employer]ENTICE [facility], [place], [address], [place] tel:[phone] [facility] [address] swollen lymph nodes (chief complaint) Cervical lymphadenopathy 2 Heaven Hickey. [address] [facility], [id number] [address], [place], [place], [id number] , [place]. tel: [phone] Family History Family Member Type Diagnosis Age At Onset No Information Payers Payer name Insurance type Covered republican ID Authoriza tion(s) UMR CV KL [id number] Social History Type Description Quantity Date Captured Comments Alcohol Use Details Unknown Caffeine Use Details Unknown Tobacco Use Status No Information Smoking Status No Information Sex Female Sexual Orientation Straight or heterosexual May Gender Identity Female Chief Complaint And Reason For Visit No Information Reason For Referral Reason For Referral No Information Plan Of Treatment Date Type Action Status Goal Td vaccine. Due on due Goal Tdap. Due on due Goal HPV. Due on due Goal Hepatitis C scre ening. Due on due Goal Pap/HPV testing. Due on due Goal Depression scree williams. Due on due Goal Influenza vaccin e. Due on due Goal Unhealthy drug u se screening. Due on due Goal Depression scree williams. Due on due Goal Influenza vaccin e. Due on due Goal Unhealthy drug u se screening. Due on due Goal Td vaccine. Due on due Goal Tdap. Due on due Goal HPV. Due on due Goal Hepatitis C scre ening. Due on due Goal Pap/HPV testing. Due on due Referral Ordered: US EXAM OF HEAD AND NECK Bilateral neck ordered Future Order: Radiology Order US EXAM OF HEAD AND NECK Bilateral neck ([id number]), Body Site: neck, Added on: New History Of Present Illness Encounter Date Complaint History Of Prese nt Illness swollen lymph nodes Patient is h ere for 1 moth duration of waxing and waning anterior cervical neck swelling and pain. Patient admits to intermittent pain L>R lymph node tenderness. Denies fever, chills, wt gain or wt loss, no recent illness. No erythema associated. No pain or difficulty with swallowing. Admits to seasonal allergies. Functional Status Date Functional Assessmen t No Information Instructions Date Instruction Additional Infor gwen 1. Neck US ordered f or anterior neck lymphadenopathy. 2. Check complete blood count. 3. I will call you with results. Related to Cervical lymphadenopathy Assessments Type Assessment Date No Information Patient Care Teams Name Effective Dates (start - stop) Status Members No Information
[2024-07-28] VITALS (67 sets, daily range): BP systolic 82–107; BP diastolic 49–66; PULSE 71–110; RESP 16–17; TEMP 36.4–36.6; O2SAT 91–100; BMI 30.5
--- OUTSIDE RECORDS SUMMARY | 2024-07-28 05:38 | XMS_ITS | Patient Health Record ---
Author Organization [facility] Address [address] [place] [address] Support Name Relationship Address Phone Leatha Lee Guarantor Unknown [phone] Reason For Referral No Information Plan Of Treatment No Information Insurance Providers Payer Name Payer Address Payer Phone Subscriber Number Group Number Insured Name Patient Relationship to Insured Coverage Start Date Coverage End Date [facility] [id number] [place] [address] Leatha Lee Self - patient is the insured
--- OUTSIDE RECORDS SUMMARY | 2024-07-28 05:38 | XMS_ITS | Continuity of Care Document ---
Author Organization [facility], Alan, [facility] ([facility]) Address [address] [place] [address] Assessment No assessment recorded. Plan of Treatment Reminders Order Date Submit Date Provider Last Modified By Organization Details Last Modified Time Details Appointments OFFICE VISIT 10 2024 10:20A M Tommy Archer MD Not available Not available Not available Lab None recorded . Referral None recorded . Procedures None recorded . Surgeries None recorded . Imaging None recorded . Medication Orders None recorded . Patient TargetsNo targets recorded. Patient InstructionsNo instructions recorded. Reason for Referral None Reported. Results Created Date Observation Date Name Description Value Unit Range Abnormal Flag Note LastModifiedBy Organization Detail LastModifiedTime 04/03/19 25 04/02/2024 US, obste tric, 2nd trime ster No observ ation record ed. [address] [place], [address], 04/08/2024 13:42:18 07/12/19 25 07/10/2024 US, obste tric, 3rd trime ster No observ ation record ed. [email or web address] [facility] ([facility]) [address] [place], [address], 07/15/2024 08:55:10 Result Notes None recorded. Problems Name Problem SNOMED Code Status Onset Date Resolution Date Notes Provider Name and Address Organization Details Recorded Time Normal in multigravid a 4326615819975 06 Active 2023 CARLOS Ortiz [facility], Alan 5 10:45:45 Normal in multigravid a 2613864897830 06 Active 2023 [facility], Alan 5 10:45:45 Heartburn 07602999 Active 2024 [facility], Alan 5 11:39:16 Problem Notes None recorded. Procedures Surgical History Date Name Laterality Status Provider Name and Address Organization Details Recorded Time 03/02/19 25 Date of [facility] 10:46:22 02/20/19 25 sampling of cervix for Papanicolaou smear [facility]07[facility]24 10:47:11 03/31/19 23 delivery completed [facility], Alan 01/21/2024 09:32:37 12/12/19 14 [facility] 09:32:27 Imaging Results None recorded. Procedure Notes None recorded. Medical Equipment None Reported. Allergies No known drug allergies Medications Name Sig Start Date Stop Date Status Note LastModified by Organization Details LastModified Time albuterol sulfate 2.5 mg/3 mL (0.083 %) solution for nebulizat ion use 1 vial in nebulize r EVERY 4 HOURS NEEDED FOR SHORTNES S OF BREATH or wheezing 01/20 completed Not Available Not Available Not Available ibuprofen 800 mg tablet tid 01/20 completed 0; Recorded 04/05/19 3:57PM by Carlos iyer, Office Visit; Not Available Not Available Not Available hydrocodo ne 5 mg-acetam inophen 325 mg tablet Q 6 hrs prn 01/20 completed 0; Recorded 04/05/19 3:57PM by Treba L. Neuschwa nder, Office Visit; Not Available Not Available Not Available prednison e 20 mg tablet TAKE 1 TABLET BY MOUTH THREE TIMES DAILY FOR THREE DAYS, THEN ONE TWICE DAILY FOR TWO DAYS, THEN ONE EVERY DAY FOR TWO DAYS 01/20 completed Not Available Not Available Not Available famotidin e 20 mg tablet Take 1 tablet twice a day by oral route as needed. 06/13 completed Not Available Not Available Not Available cephalexi n 500 mg capsule TAKE ONE CAPSULE BY MOUTH EVERY 8 HOURS FOR 5 DAYS 01/20 completed Not Available Not Available Not Available neomycin- polymyxin -dexameth 3.5 mg/mL-10, 000 unit/mL-0 .1% eye drops USE 1-2 drops IN EACH EYE FOUR TIMES DAILY for 7 days 01/20 completed Not Available Not Available Not Available nitrofura ntoin macrocrys kanu 100 mg capsule TAKE 1 CAPSULE BY MOUTH TWICE DAILY WITH FOOD FOR 7 DAYS 05/16 completed Not Available Not Available Not Available cephalexi n 500 mg tablet Take 1 tablet twice a day by oral route for 7 days. 05/28 completed vo JR/tn Not Available Not Available Not Available SF 5000 Plus 1.1 % dental cream brush TWICE DAILY. EXPECTOR ATE OUT excess. DO not SWISH 05/16 completed Not Available Not Available Not Available metoclopr amide 10 mg tablet TAKE 1 TABLET BY MOUTH EVERY 6 HOURS NEEDED FOR NAUSEA OR VOMITING 05/16 completed Not Available Not Available Not Available amoxicill in 875 mg-potass ium clavulana te 125 mg tablet TAKE 1 TABLET BY MOUTH TWICE DAILY FOR 10 DAYS 01/20 completed Not Available Not Available Not Available Vitamin QD active 0; Recorded 04/05/19 23 3:57PM by Carlos iyer, Office Visit; Not Available Not Available Not Available Vitals Date Recorded Body height Body mass index (BMI) Body weight Respiratory rate Heart rate Oxygen saturation Oxygen saturation in Arterial blood by Pulse oximetry Body temperature Systolic blood pressure Diastolic blood pressure Provider Name and Address Organization Details Last Updated DateTime 160.02 cm 29.9 kg/m2 66085.1 1 g 18 /min 106 /min 99 % 99 % 98.3 [degF] 102 mm[Hg] 66 mm[Hg] [facility] WEE[facility] 10:54:40 Social History Question Answer Notes LastModified by Organizat ion Details LastModified Time Tobacco Smoking Status Never Smoker FANNY WEEKS domonique [facility] 01/21/2024 09:31:53 Are You Blind Or Do You Have Difficulty Seeing? No Information not available 06/25/2024 Are You Deaf Or Do You Have Serious Difficulty Hearing? No Information not available 06/25/2024 What Was The Date Of Your Most Recent Tobacco Screening? 06/25/2024 Information not available 06/25/2024 What Is Your Relationship Status? Information not available 01/21/2024 Are You Sexually Active? Yes Information not available 06/25/2024 Do You Have Difficulty Walking Or Climbing Stairs? No Information not available 06/25/2024 Sex: Unknown Functional Status Question Answer Note LastModified by Organizat ion Details LastModified Time Do you or have you ever used any other forms of tobacco or nicotine? No Information not available 01/21/2024 What is your level of alcohol consumption? None Information not available 01/21/2024 Are you currently employed? No Information not available 06/25/2024 Do you have transportation difficulties? No Information not available 06/25/2024 Are you able to walk? YESWOREST Information not available 06/25/2024 Do you have difficulty doing errands alone? No Information not available 06/25/2024 Are you able to care for yourself? Yes Information not available 01/21/2024 Do you have difficulty dressing or bathing? No Information not available 06/25/2024 Mental Status Question Answer Note LastModified by Organization D etails LastModified Time Do you have difficulty concentrating, remembering or making decisions? No Information no t available 06/25/2024 Family History Nothing Reported Notes:Mother: Thyroid diseas e Medical History No medical history recorded. Gynecological History Statement/Question Response Abnormal Pap N Date of Last Pap Smear 03/02/2024 Date of LMP 11/01/2023 LMP Definite Obstetrics History GPAL:G 7 P 5 0 1 5 Type Value Full Term 5 Spontaneous 1 Living 5 Total 7 Immunizations Vaccine Type Date Status Note Provider Nam e and Address Organization Details Recorded Time Tdap 11/19/2013 completed Not Available [facility] 07/23/2024 10:43:43 Tdap 11/25/2015 completed Not Available [facility] 07/23/2024 10:43:43 Tdap 02/21/2022 completed Not Available [facility] 09/16/2022 02:32:48 Past Encounters Encounter ID Performer Location Encounter Start Date Encounter Closed Date Diagnosis/Indication Diagnosis SNOMED-CT Code Diagnosis ICD10 Code Diagnosis Note [id number] Tommy Archer MD [facility] ([facility]) [address] [place] [phone] 06/25/2024 10:33:56 06/25/2024 11:23:52 Normal in multigravida 6787213530 00232 Z34.82 Gestation period, 34 weeks 89808886 Z3A.34 [id number] Tommy Archer MD [facility] ([facility]) [address] [place] [phone] 5 07/09/2024 10:50:17 07/09/2024 13:06:43 Normal in multigravida 2791898292 32272 Z34.82 Gestation period, 36 weeks 19866836 Z3A.36 [id number] Tommy Archer MD [facility] ([facility]) [address] [place] [phone] 5 07/10/2024 12:05:39 07/11/2024 10:00:02 [id number] Tommy Archer MD [facility] ([facility]) [address] [place] [phone] 07/16/2024 11:03:11 07/16/2024 11:27:50 Normal in multigravida 5038976932 36905 Z34.83 Gestation period, 37 weeks 55050499 Z3A.37 [id number] Tommy Archer MD [facility] ([facility]) [address] [place] [id number] 07/23/2024 10:43:17 07/23/2024 11:15:32 Normal in multigravida 9940363550 42785 Z34.83 Gestation period, 38 weeks 32463762 Z3A.38 Health Concerns Section Related Observation LastModified by Organization Detai ls LastModified Time None Recorded Concern Status LastModified by Organization Details LastModified Time None Recorded Payers Encounter Date Sequence Insurance Name Policy Number Policy Cerda Covered Member ID Cerda Member ID Guarantor Name 07/23/2024 1 [place] [id number] Vishnu Lee [id number] Leatha Lee Notes Date Note Type Note Provider Name and Address Organization Details Recorded Time 07/23/2024 text/html jr ob routineRep orted bypatient.Associated Symptoms:no abdominal pain; no cramping; no contractions; normal movement; no bleeding; no vaginal discharge; no vaginal/vulvar itching or irritation; no dysuria; no frequency; no urgency; no hematuria; no fever; no nausea; no emesis; no constipation; no diarrhea/loose stool; no visual changes; no headache; no dizziness; no breathlessness;edema( legs/hands)Notes:hear tburnDenies any tobacco, alcohol, or drug use Tommy Archer MD [address] [place], [address], [facility], [facility] 07/23/2024 11:12:27 OBGyn Episode Ob Episode Information Episode Created Date Number of Fetuses Patient Bloodtype Patient rh Status Prepregnancy Weight lbs Domestic Partner Domestic Partner Phone Father Name Media 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 - a week differenceWe need to determine date for ltcs due to scheduling challenges with my schedule. set up for July 28, 2024 @ 0700, anethesia consult 07/09/24 @ 0900. Pt aware. Confirmed on 06/16/24. Chantell is older girl and helga is younger girl Problem Name Start Date End Date Resolution Snomed Code Not e Normal in multigravida 02/19/2024 [id number] Nayana Calculation Initial Nayana Date Initial Exam Date Initial Exam Provider Initial Ultrasound Date Last Menstrual Period Date Ultra Sound Weeks Gestation 08/01/2024 01/21/2024 11/01/2023 0 Eighteen To Twenty Week Nayana Update Ultra Sound Date Fundal Height At Umbil Quickening Date Ultra Sound Latest Weeks Gestation Final Nayana Confirmed By Final Nayana Confirmed Date Final Nayana Date Ultra Sound Latest Days Gestation 0 0 Pre-nishant Flowsheet Flowsheet Date 01/21/2024 Card Score Blood Edema Fundus Height Fundus Units Glucose Ketones Leukocytes Nitrite Labor Signs Protein Cervic Dilation Cervic Effacement Cervic Station Type Weight in lbs Pre/Post Dialysis Refused Weight 145.63112662841 BP Diastolic BP Location Tested BP Systolic BP Type 80 120 Fetus Heart Rate Present Fetus Movement Comments OBI Flowsheet Date 02/21/2024 Card Score Blood Edema Fundus Height Fundus Units Glucose Ketones Leukocytes Nitrite Labor Signs Protein Cervic Dilation Cervic Effacement Cervic Station Type Weight in lbs Pre/Post Dialysis Refused 149.5957689083 BP Diastolic BP Location Tested BP Systolic BP Type 72 118 sitting Fetus Heart Rate Present A 154 Fetus Movement Comments NOB, breast tenderness, fati joseph Flowsheet Date 04/02/2024 Card Score Blood Edema Fundus Height Fundus Units Glucose Ketones Leukocytes Nitrite Labor Signs Protein Cervic Dilation Cervic Effacement Cervic Station Type Weight in lbs Pre/Post Dialysis Refused BP Diastolic BP Location Tested BP Systolic BP Type Fetus Heart Rate Present Fetus Movement Comments Flowsheet Date 04/02/2024 Card Score Blood Edema Fundus Height Fundus Units Glucose Ketones Leukocytes Nitrite Labor Signs Protein Cervic Dilation Cervic Effacement Cervic Station 22 cm none none Negative neg Type Weight in lbs Pre/Post Dialysis Refused 156.539828174564 BP Diastolic BP Location Tested BP Systolic BP Type 62 118 sitting Fetus Heart Rate Present A 152 Present Fetus Movement A Yes Comments RLQ pain/burning Flowsheet Date 04/03/2024 Card Score Blood Edema Fundus Height Fundus Units Glucose Ketones Leukocytes Nitrite Labor Signs Protein Cervic Dilation Cervic Effacement Cervic Station Type Weight in lbs Pre/Post Dialysis Refused BP Diastolic BP Location Tested BP Systolic BP Type Fetus Heart Rate Present Fetus Movement Comments u/s on 04/02/24, EGA 22.5, ED D 08/01/24, This is 2 days earlier than the previous u/s. There has been interval growth of the fetus. FHR 140, Cephalic presentation, Placenta is anterior, SUE normal for gestational age, Unremarkable anatomic survey. Flowsheet Date 05/07/2024 Card Score Blood Edema Fundus Height Fundus Units Glucose Ketones Leukocytes Nitrite Labor Signs Protein Cervic Dilation Cervic Effacement Cervic Station 27 cm none trace Negative neg Type Weight in lbs Pre/Post Dialysis Refused 158.909136825260 BP Diastolic BP Location Tested BP Systolic BP Type 62 110 sitting Fetus Heart Rate Present A 150 Present Fetus Movement A Yes Comments dysuria-burning/urgency, sylvia ma [id number] Flowsheet Date 05/21/2024 Card Score Blood Edema Fundus Height Fundus Units Glucose Ketones Leukocytes Nitrite Labor Signs Protein Cervic Dilation Cervic Effacement Cervic Station Type Weight in lbs Pre/Post Dialysis Refused BP Diastolic BP Location Tested BP Systolic BP Type Fetus Heart Rate Present Fetus Movement Comments Flowsheet Date 05/28/2024 Card Score Blood Edema Fundus Height Fundus Units Glucose Ketones Leukocytes Nitrite Labor Signs Protein Cervic Dilation Cervic Effacement Cervic Station 29.5 cm none none Negative neg Type Weight in lbs Pre/Post Dialysis Refused Weight 160.747172256164 BP Diastolic BP Location Tested BP Systolic BP Type 58 110 sitting Fetus Heart Rate Present A 152 Present Fetus Movement A Yes Comments glucose today, feeling well Flowsheet Date 06/13/2024 Card Score Blood Edema Fundus Height Fundus Units Glucose Ketones Leukocytes Nitrite Labor Signs Protein Cervic Dilation Cervic Effacement Cervic Station 33 cm none 2+ 1+ Type Weight in lbs Pre/Post Dialysis Refused Weight 163.922896667576 BP Diastolic BP Location Tested BP Systolic BP Type 62 116 Fetus Heart Rate Present A 148 Present Fetus Movement A Yes Comments intermittent dizziness Flowsheet Date 06/25/2024 Card Score Blood Edema Fundus Height Fundus Units Glucose Ketones Leukocytes Nitrite Labor Signs Protein Cervic Dilation Cervic Effacement Cervic Station 32.5 cm none 1+ trace Type Weight in lbs Pre/Post Dialysis Refused Weight 165.48972829011 BP Diastolic BP Location Tested BP Systolic BP Type 62 L arm 108 Fetus Heart Rate Present A 148 Present Fetus Movement A Yes Comments heartburn/indigestion Flowsheet Date 07/09/2024 Card Score Blood Edema Fundus Height Fundus Units Glucose Ketones Leukocytes Nitrite Labor Signs Protein Cervic Dilation Cervic Effacement Cervic Station 35 cm none trace Negative trace Type Weight in lbs Pre/Post Dialysis Refused Weight 166.316605556664 BP Diastolic BP Location Tested BP Systolic BP Type 64 100 sitting Fetus Heart Rate Present A 150 Present Fetus Movement A Yes Comments edema-legs,hands heartburn Flowsheet Date 07/10/2024 Card Score Blood Edema Fundus Height Fundus Units Glucose Ketones Leukocytes Nitrite Labor Signs Protein Cervic Dilation Cervic Effacement Cervic Station Type Weight in lbs Pre/Post Dialysis Refused BP Diastolic BP Location Tested BP Systolic BP Type Fetus Heart Rate Present Fetus Movement Comments Flowsheet Date 07/11/2024 Card Score Blood Edema Fundus Height Fundus Units Glucose Ketones Leukocytes Nitrite Labor Signs Protein Cervic Dilation Cervic Effacement Cervic Station Type Weight in lbs Pre/Post Dialysis Refused BP Diastolic BP Location Tested BP Systolic BP Type Fetus Heart Rate Present Fetus Movement Comments u/s on 07/10/24, NAYANA 08/05/24, vertex, SUE 16.37, placenta anterior Flowsheet Date 07/15/2024 Card Score Blood Edema Fundus Height Fundus Units Glucose Ketones Leukocytes Nitrite Labor Signs Protein Cervic Dilation Cervic Effacement Cervic Station Type Weight in lbs Pre/Post Dialysis Refused BP Diastolic BP Location Tested BP Systolic BP Type Fetus Heart Rate Present Fetus Movement Comments Group B strep NegativeOB rec ords sent Flowsheet Date 07/16/2024 Card Score Blood Edema Fundus Height Fundus Units Glucose Ketones Leukocytes Nitrite Labor Signs Protein Cervic Dilation Cervic Effacement Cervic Station none trace Negative trace Type Weight in lbs Pre/Post Dialysis Refused Weight 166.542076434483 BP Diastolic BP Location Tested BP Systolic BP Type 62 110 sitting Fetus Heart Rate Present A 146 Present Fetus Movement A Yes Comments edema in legs/hands. heartbu rn Flowsheet Date 07/23/2024 Card Score Blood Edema Fundus Height Fundus Units Glucose Ketones Leukocytes Nitrite Labor Signs Protein Cervic Dilation Cervic Effacement Cervic Station none 1+ trace Type Weight in lbs Pre/Post Dialysis Refused Weight 169.174089161092 BP Diastolic BP Location Tested BP Systolic BP Type 66 102 Fetus Heart Rate Present A 136 Present Fetus Movement A Yes Comments swelling feet and hands, hea rtburn Menstrual History Last Menstrual Date Menses Monthly On Bcp Conception Prior Menses Frequency Hcg Plus Date Menarche Onset Age 0911/01/2023 Delivery Information Delivery Date Delivery Type Labor Anesthesia Weeks Gestation Incision Type Labor Labor Length Hrs Delivered By Post Complications Tubal Sterilization Discharge Date Comments Discharge Information Feeding Method Contraceptive Method Maternal HG B and HCT Levels
--- OUTSIDE RECORDS SUMMARY | 2024-07-28 05:38 | XMS_ITS | Patient Health Record ---
Author Organization [facility] Address [address] [place] [address] Care Team Providers Care Forest Manager Name Role Phone ERIN HENRIQUEZ Primary Care Provider Unav ailable ERIN HENRIQUEZ Unavailable Allergies No Known Allergies Reason For Referral No Information Medications Medication SIG (Take, Route, Frequency, Duration) Notes Start Date End Date Status Nystatin-Triamcinolone 351314-1.1 UNIT/GM 1 application Externally Twice a day for 30 days 05/21/2020 Unknown Diflucan 150 MG 1 tablet Orally ever y 72 hrs for 3 days 02/10/2020 Unknown Flagyl 500 MG 1 tablet Orally Two times a day for 7 day(s) 05/03/2020 Unknown Colace 100 MG 1 capsule as needed Orally twice a day as needed for constipation for 30 day(s) 01/08/2020 Unknown Flagyl 500 MG 1 tablet Orally twic e daily for 7 days 02/10/2020 Unknown Ondansetron HCl 4 MG 1 tablet Orally edwin ry 6 to 8 hours as needed for 30 day(s) 12/15/2019 Unknown Diclegis 10-10 MG 2 tablets at bedtime on an empty stomach Orally Once a day; Bin [id number] RxPCN Group ID [id number] ID_# [id number] for 30 day(s) 12/16/2019 Unknown Daily Value Multivitamin Unknown Ortho Micronor 0.35 MG 1 tablet Orally O nce a day for 90 days 10/05/2020 Unknown Immunizations Vaccine Route Administration Date Status Comme nts OB Flucelvax Quadrivalent IM Intramuscular 12/03/2017 Admi nistered TDAP/ OB VACCINE IM Intramuscular 04/08/2018 Administered TDAP/ OB VACCINE IM Intramuscular 05/21/2020 Administered Social History Tobacco Use: Social History Observation Description Date Details (start date - stop date) Never Smoker NA - NA Tobacco Use/Smoking Question Answer Notes Smoking Status: nonsmoker Alcohol Screen Question Answer Notes Do you drink alcohol? No Sexual History Question Answer Notes Are you sexually active? Yes Problems Problem Type SNOMED Code ICD Code Onset Dates Problem Status W/U Status Risk Notes Problem 80405651 High risk , antepartum (O09.90) Active confirmed Problem 982874794 History of (Z98.891) Active confirmed Problem 001301855 History of delivery, currently (O34.219) Active confirmed Plan Of Treatment No Information Insurance Providers Payer Name Payer Address Payer Phone Subscriber Number Group Number Insured Name Patient Relationship to Insured Coverage Start Date Coverage End Date R [address] [address] [place] [address] [id number] Vishnu Lee Spouse - patient is the spouse of the insured 9 Medical (General) History Medical History History ICD Code History of Z98.891 seasonal allergies Surgical History Surgery Date(Month/Year) 2013
--- OUTSIDE RECORDS SUMMARY | 2024-07-28 05:38 | XMS_ITS | Data Portability ---
Author Organization [facility] Address [address] [facility] [address] [place] [address] Assessment No assessment recorded. Plan of Treatment Reminders Order Date Submit Date Provider Last Modified By Organization Details Last Modified Time Details Appointments OFFICE VISIT 10 2024 10:20A M Tommy Archer MD Not available Not available Not available Lab streptoco ccus group B, culture, unspecifi ed specimen 2024 025 Home Chef [facility], [address] [facility] , [address], [place], [address], 07/13/2024 13:01:55 Referral None recorded. Procedures None recorded. Surgeries None recorded. Imaging US, obstetric , follow-up - [id number] 2024 025 [email or web address] [facility], [address] [place], [address], 07/10/2024 12:28:47 Medication Orders None recorded. Patient TargetsNo targets recorded. Patient InstructionsNo instructions recorded. Reason for Referral None Reported. Results Created Date Observation Date Name Description Value Unit Range Abnormal Flag Note LastModifiedBy Organization Detail LastModifiedTime 05/29/1905/28/2024 CBC WBC 5.9 x10 4.0-10 .5 Not Available [facility] [address] [facility] [address], [place], [address], 05/28/2024 11:18:52 05/29/1905/28/2024 CBC RBC 4.07 x10 3.50-5 .50 Not Available [facility] [address] [facility] [address], [place], [address], 05/28/2024 11:18:52 05/29/1905/28/2024 CBC HGB 12.6 g/dL 12.0-1 6.0 Not Available [facility] [address] [facility] [address], [place], [address], 05/28/2024 11:18:52 05/29/1905/28/2024 CBC HCT 37.3 % 37.0-4 7.0 Not Available [facility] [address] [facility] [address], [place], [address], 05/28/2024 11:18:52 05/29/1905/28/2024 CBC MCV 91.6 fL 80.0-9 9.9 Not Available [facility] [address] [facility] [address], [place], [address], 05/28/2024 11:18:52 05/29/1905/28/2024 CBC MCH 30.9 pg 27.0-3 2.0 Not Available [facility] [address] [facility] [address] [facility] [address], [place], [address], 05/28/2024 11:18:52 05/29/1905/28/2024 CBC MCHC 33.8 g/dL 32.0-3 6.0 Not Available [facility] [address] [facility] [address], [place], [address], 05/28/2024 11:18:52 05/29/1905/28/2024 CBC RDW 12.8 % 11.5-1 4.5 Not Available [facility] [address] [facility] [address], [place], [address], 05/28/2024 11:18:52 05/29/19 25 05/28/2024 CBC plt 146.5 x10 140.0- 451.0 Not Available [facility] [address] [facility] [address] [facility] [address], [place], [address], 05/28/2024 11:18:52 05/29/19 25 05/28/2024 CBC lymphocytes % 18.8 % 20.0-5 0.0 low Not Available [facility] [address] [facility] [address], [place], [address], 05/28/2024 11:18:52 05/29/19 25 05/28/2024 CBC granulcytes % 72.4 % 30.0-7 0.0 high Not Available [facility] [address] [facility] [address], [place], [address], 05/28/2024 11:18:52 05/29/19 25 05/28/2024 CBC monocytes % 7.4 % 2.0-16 .0 Not Available [facility] [address] [facility] [place], [place], [address], 05/28/2024 11:18:52 05/29/19 25 05/28/2024 CBC granulcytes# 4.3 x10 Not Shira ilable [facility] [address] [place] [address] [facility] [place], [place], [address], 05/28/2024 11:18:52 05/29/19 25 05/28/2024 CBC lymphocytes # 1.1 x10 Not Available [facility] [address] [place] [address] [facility] [place], [place], [address], 05/28/2024 11:18:52 05/29/19 25 05/28/2024 CBC monocytes # 0.4 x10 Not Avai lable [facility] [address] [facility] [place], [place], [address], 05/28/2024 11:18:52 05/29/19 25 05/28/2024 GLUCO SE SCRESebastian N glucose screen 54.0 mg/dL low Not Available [facility] [address], [address], 05/28/2024 11:58:30 07/11/19 25 07/13/2024 STREP TOCOC CUS, GROUP B CULTU RE streptococcu s, group B culture SEE NOTE STREP TOCOC CUS, GROUP B CULTU RE Micro Numbe r: [id number] Test Statu s: Final Speci men Sourc e: Vagin al/an orect al Speci men Quali ty: Adequ ate Resul t: No group B Strep tococ cus isola amira Note per CDC guide lines optim al recov racquel is achie kirill by swabb ing both the lower vagin a and rectu m (thro ugh the anal sphin cter) . Not Available Sol[facility] [address], [place], [address], 07/13/2024 13:01:54 07/12/19 25 07/10/2024 US, obste tric, 3rd trime ster No observ ation record ed. [email or web address] [facility] [address] [place], [address], 07/15/2024 08:55:10 Result Notes None recorded. Problems Name Problem SNOMED Code Status Onset Date Resolution Date Notes Provider Name and Address Organization Details Recorded Time Normal in multigravid a 9119725747930 06 Active 2023 TREBA NEUSCHWAN ASTER null, [facility] 5 10:45:45 Normal in multigravid a 5043213803611 06 Active 2023 TREBA NEUSCHWAN ASTER null, [facility] 5 10:45:45 Heartburn 48170255 Active 2024 TREBA NEUSCHWAN ASTER null, [facility]Rhiannon 11:39:16 Problem Notes None recorded. Procedures Surgical History Date Name Laterality Status Provider Name and Address Organization Details Recorded Time 03/02/19 25 Date of Last Pap Smear completed [facility], L.L[facility]ade 05/07/2024 10:46:22 02/20/19 25 sampling of cervix for Papanicolaou smear completed [facility], TonyLBlade 05/07/2024 10:47:11 03/31/[address] [facility], Alan 01/21/2024 09:32:37 12/12/19 [address] [facility], Alan 01/21/2024 09:32:27 Imaging Results None recorded. Procedure [...] completed 0; Recorded 04/05/19 3:57PM by Carlos bowlingr, Office Visit; Not Available Not Available Not Available hydrocodo ne 5 mg-acetam inophen 325 mg tablet Q 6 hrs prn 01/20 completed 0; Recorded 04/05/19 23 3:57PM by Carlos [...] Not Available Not Available nitrofura ntoin macrocrys kaun 100 mg capsule TAKE 1 CAPSULE BY [...] height Body mass index (BMI) Body weight Oxygen saturation Oxygen saturation in Arterial blood by Pulse oximetry Heart rate Respiratory rate Body temperature Systolic blood pressure Diastolic blood pressure Provider Name and Address Organization Details Last Updated DateTime 5 160.02 cm 29.3 kg/m2 34300.4 4 g 98 % 98 % 88 /min 18 /min 98.8 [degF] 108 mm[Hg] 62 mm[Hg] FANNY WEEKS [facility] 5 10:54:12 Date Recorded Body height Body mass index (BMI) Body weight Oxygen saturation Oxygen saturation in Arterial blood by Pulse oximetry Heart rate Respiratory rate Body temperature Systolic blood pressure Diastolic blood pressure Provider Name and Address Organization Details Last Updated DateTime 5 160.02 cm 29.4 kg/m2 70985.3 3 g 98 % 98 % 94 /min 18 /min 98.8 [degF] 100 mm[Hg] 64 mm[Hg] CARLOS [facility] 5 11:45:11 Date Recorded Body height Body mass index (BMI) Body weight Oxygen saturation Oxygen saturation in Arterial blood by Pulse oximetry Heart rate Respiratory rate Body temperature Systolic blood pressure Diastolic blood pressure Provider Name and Address Organization Details Last Updated DateTime 5 160.02 cm 29.4 kg/m2 06653.0 3 g 99 % 99 % 91 /min 18 /min 98.4 [degF] 110 mm[Hg] 62 mm[Hg] CARLOS FEILZFLGonzalo [facility].CB[facility] 5 11:12:18 Date Recorded Body height Body mass index (BMI) Body weight Respiratory rate Heart rate Oxygen saturation Oxygen saturation in Arterial blood by Pulse oximetry Body temperature Systolic blood pressure Diastolic blood pressure Provider Name and Address Organization Details Last Updated DateTime 5 160.02 cm 29.9 kg/m2 90982.1 1 g 18 /min 106 /min 99 % 99 % 98.3 [degF] 102 mm[Hg] 66 mm[Hg] FANNY WEEKS [facility] 5 10:54:40 Social History Question Answer Notes LastModified by Organizat ion Details LastModified Time Tobacco Smoking Status Never Smoker FANNY WEEKS [facility] 01/21/2024 09:31:53 Are You [...] difficulty concentrating, remembering or making decisions? No [email or web address] Information no t available 06/25/2024 Family History [...] Recorded Time Tdap 11/19/2013 completed Not Available [facility] 07/23/2024 10:43:43 Tdap 11/25/2015 completed Not Available [facility] 07/23/2024 10:43:43 Tdap 02/21/2022 completed Not Available [facility] 09/16/2022 02:32:48 Past Encounters Encounter ID Performer Location Encounter Start Date Encounter Closed Date Diagnosis/Indication Diagnosis SNOMED-CT Code Diagnosis ICD10 Code Diagnosis Note [id number] Tommy Archer MD [facility]) [address] [place] [phone] 5 05/16/2022 12:27:43 05/16/2022 13:30:39 care 638141487 Z39.2 Does not desire OC at this time. [id number] Tommy Archer MD [facility] ([facility]) [address] [place] [address] [id number] 5 01/21/2024 09:16:25 01/21/2024 10:07:17 Gestation period, 11 weeks 11827046 Z3A.11 [id number] Tommy Archer MD [facility] ([facility]) [address] [place] [address] [id number] 5 02/21/2024 10:04:54 02/21/2024 11:07:17 Normal in multigravida [id number] 17732 Z34.82 [id number] Tommy Archer MD [facility]) [address] [place] [address] [id number] 5 04/02/2024 10:33:44 04/04/2024 11:17:19 [id number] Tommy Archer MD [facility] ([facility]) [address] [place] [address] [id number] 5 04/02/2024 11:05:17 04/02/2024 11:50:15 Normal in multigravida 7336672205 03545 Z34.82 Gestation period, 21 weeks 14016924 Z3A.21 [id number] Tommy Archer MD [facility] ([facility]) [address] [place] [address] [id number] 5 05/07/2024 10:35:35 05/07/2024 16:27:27 Normal in multigravida 6068182266 60103 Z34.82 Gestation period, 27 weeks 02438578 Z3A.27 Dysuria 70524654 R30.0 [id number] Tommy Archer MD [facility] ([facility]) [address] [place] [address] [id number] 5 05/21/2024 09:50:33 05/23/2024 10:46:14 [id number] Tommy Archer MD [facility] ([facility]) [address] [place] [address] [id number] 5 05/28/2024 10:09:35 05/29/2024 08:15:05 Normal in multigravida 0677029841 82365 Z34.82 Gestation period, 30 weeks 60703784 Z3A.30 Heartburn 09260774 R12 [id number] Tommy Archer MD [facility] ([facility]) [address] [place] [address] [id number] 5 06/13/2024 10:44:40 06/26/2024 23:18:07 Normal in multigravida 0969681431 82200 Z34.82 Gestation period, 33 weeks 00764330 Z3A.33 [id number] Tommy Archer MD [facility] ([facility]) [address] [place] [address] [id number] 5 06/25/2024 10:33:56 06/25/2024 11:23:52 Normal in multigravida 8588627780 06656 Z34.82 Gestation period, 34 weeks 59236126 Z3A.34 [id number] Tommy Archer MD [facility] ([facility]) [address] [place] [address] [id number] 5 07/09/2024 10:50:17 07/09/2024 13:06:43 Normal in multigravida 3957690567 10449 Z34.82 Gestation period, 36 weeks 64696645 Z3A.36 [id number] Tommy Archer MD [facility] ([facility]) [address] [place] [address] [id number] 5 07/10/2024 12:05:39 07/11/2024 10:00:02 [id number] Tommy Archer MD [facility] ([facility]) [address] [place] [address] [id number] 5 07/16/2024 11:03:11 07/16/2024 11:27:50 Normal in multigravida 4211670623 46826 Z34.83 Gestation period, 37 weeks 08402818 Z3A.37 [id number] Tommy Archer MD [facility] ([facility]) [address] [place] [address] [id number] 5 07/23/2024 10:43:17 07/23/2024 11:15:32 Normal in multigravida 8596461203 66967 Z34.83 Gestation period, 38 weeks 52833473 Z3A.38 Health Concerns Section Related Observation LastModified by Organization Detai ls LastModified Time None Recorded Concern Status LastModified by Organization Details LastModified Time None Recorded Advance Directives Directive None Recorded Payers Encounter Date Sequence Insurance Name Policy Number Policy Cerda Covered Member ID Cerda Member ID Guarantor Name 06/25/2024 1 [employer] [id number] Vishnu J Coke [id number] Leatha M Coke 07/09/2024 1 [place] [id number] Vishnu J Coke [id number] Leatha M Coke 07/10/2024 1 [place] [id number] Vishnu J Coke [id number] Leatha M Coke 07/16/2024 1 [place] [id number] Vishnu J Coke [id number] Leatha M Coke 07/23/2024 1 [place] [id number] Vishnu J Coke [id number] Leatha M Coke Notes Date Note Type Note Provider Name and Address Organization Details Recorded Time 06/25/2024 text/html ob routineRep orted bypatient.Associated Symptoms:no abdominal pain; no cramping; no contractions; normal movement; no bleeding; no vaginal discharge; no vaginal/vulvar itching or irritation; no dysuria; no frequency; no urgency; no hematuria; no fever; no nausea; no emesis; no constipation; no diarrhea/loose stool; no edema; no visual changes; no headache; no dizziness; no breathlessnessNotes:h eartburnDenies any tobacco, alcohol, or drug use Tommy Archer MD [address] [place] [address], [phone], [facility] 06/25/2024 11:19:02 07/09/2024 text/html ob routineRep orted bypatient.Associated Symptoms:no abdominal pain; no cramping; no contractions; normal movement; no bleeding; no vaginal discharge; no vaginal/vulvar itching or irritation; no dysuria; no frequency; no urgency; no hematuria; no fever; no nausea; no emesis; no constipation; no diarrhea/loose stool; no visual changes; no headache; no dizziness; no breathlessness;edema( legs/hands)Notes:hear tburnDenies any tobacco, alcohol, or drug use Tommy Archer MD [address] [place] [address], [phone], [facility], L[facility]lynL[facility]lynC. 07/09/2024 12:05:59 07/16/2024 text/html ob routineRep orted bypatient.Associated Symptoms:no abdominal pain; no cramping; no contractions; normal movement; no bleeding; no vaginal discharge; no vaginal/vulvar itching or irritation; no dysuria; no frequency; no urgency; no hematuria; no fever; no nausea; no emesis; no constipation; no diarrhea/loose stool; no visual changes; no headache; no dizziness; no breathlessness;edema( legs/hands)Notes:hear tburnDenies any tobacco, alcohol, or drug use Tommy Archer MD [address] [place] [address], [phone], [facility], LBrooklynLBrooklynC. 07/16/2024 11:27:13 07/23/2024 text/html ob routineRep orted bypatient.Associated Symptoms:no abdominal pain; no cramping; no contractions; normal movement; no bleeding; no vaginal discharge; no vaginal/vulvar itching or irritation; no dysuria; no frequency; no urgency; no hematuria; no fever; no nausea; no emesis; no constipation; no diarrhea/loose stool; no visual changes; no headache; no dizziness; no breathlessness;edema( legs/hands)Notes:hear tburnDenies any tobacco, alcohol, or drug use Tomym Archer MD [address] [place] [address], [phone], [facility], Alan 07/23/2024 11:12:27 OBGyn Episode Ob Episode Information Episode Created Date Number of Fetuses Patient Bloodtype Patient rh Status Prepregnancy Weight lbs Domestic Partner Domestic Partner Phone Father Name Cotton Washer Status 01/21/20 24 1 CLOSED Fetus Data First Name Last Name Admitted to NICU Weight (g) Sex Living Outcome Pediatric Complications Fetus ID Race Codes Race Delivery Type , Spontane ous 6408 Nayana Calculation Initial Nayana Date Initial Exam Date Initial Exam Provider Initial Ultrasound Date Last Menstrual Period Date Ultra Sound Weeks Gestation 0 Eighteen To Twenty Week Nayana Update Ultra Sound Date Fundal Height At Umbil Quickening Date Ultra Sound Latest Weeks Gestation Final Nayana Confirmed By Final Nayana Confirmed Date Final Nayana Date Ultra Sound Latest Days Gestation 0 0 Menstrual History Last Menstrual Date Menses Monthly On Bcp Conception Prior Menses Frequency Hcg Plus Date Menarche Onset Age Delivery Information Delivery Date Delivery Type Labor Anesthesia Weeks Gestation Incision Type Labor Labor Length Hrs Delivered By Post Complications Tubal Sterilization Discharge Date Comments 4 8 Discharge Information Feeding Method Contraceptive Method Maternal HG B and HCT Levels Ob Episode Information Episode Created Date Number of Fetuses Patient Bloodtype Patient rh Status Prepregnancy Weight lbs Domestic Partner Domestic Partner Phone Father Name Cotton Washer Status 01/21/20 24 1 CLOSED Fetus Data First Name Last Name Admitted to NICU Weight (g) Sex Living Outcome Pediatric Complications Fetus ID Race Codes Race Delivery Type 3486.76 1704 M Full Term 6404 Nayana Calculation Initial Nayana Date Initial Exam Date Initial Exam Provider Initial Ultrasound Date Last Menstrual Period Date Ultra Sound Weeks Gestation 0 Eighteen To Twenty Week Nayana Update Ultra Sound Date Fundal Height At Umbil Quickening Date Ultra Sound Latest Weeks Gestation Final Nayana Confirmed By Final Nayana Confirmed Date Final Nayana Date Ultra Sound Latest Days Gestation 0 0 Menstrual History Last Menstrual Date Menses Monthly On Bcp Conception Prior Menses Frequency Hcg Plus Date Menarche Onset Age Delivery Information Delivery Date Delivery Type Labor Anesthesia Weeks Gestation Incision Type Labor Labor Length Hrs Delivered By Post Complications Tubal Sterilization Discharge Date Comments 6 Regional-Ep idural 40 Discharge Information Feeding Method Contraceptive Method Maternal HG B and HCT Levels Ob Episode Information Episode Created Date Number of Fetuses Patient Bloodtype Patient rh Status Prepregnancy Weight lbs Domestic Partner Domestic Partner Phone Father Name Cotton Washer Status 01/21/20 24 1 CLOSED Fetus Data First Name Last Name Admitted to NICU Weight (g) Sex Living Outcome Pediatric Complications Fetus ID Race Codes Race Delivery Type 3656.85 8704 F Full Term 6406 Nayana Calculation Initial Nayana Date Initial Exam Date Initial Exam Provider Initial Ultrasound Date Last Menstrual Period Date Ultra Sound Weeks Gestation 0 Eighteen To Twenty Week Nayana Update Ultra Sound Date Fundal Height At Umbil Quickening Date Ultra Sound Latest Weeks Gestation Final Nayana Confirmed By Final Nayana Confirmed Date Final Nayana Date Ultra Sound Latest Days Gestation 0 0 Menstrual History Last Menstrual Date Menses Monthly On Bcp Conception Prior Menses Frequency Hcg Plus Date Menarche Onset Age Delivery Information Delivery Date Delivery Type Labor Anesthesia Weeks Gestation Incision Type Labor Labor Length Hrs Delivered By Post Complications Tubal Sterilization Discharge Date Comments 1 Regional-Ep idural 40 Discharge Information Feeding Method Contraceptive Method Maternal HG B and HCT Levels Ob Episode Information Episode Created Date Number of Fetuses Patient Bloodtype Patient rh Status Prepregnancy Weight lbs Domestic Partner Domestic Partner Phone Father Name Cotton Washer Status 01/21/20 24 1 O Positive Vishnu [...] Code Not e Normal in multigravida 02/19/2024 [id number] Nayana Calculation Initial Nayana Date Initial Exam [...] Weight in lbs Pre/Post Dialysis Refused Weight 145.90939131830 BP Diastolic BP Location Tested BP Systolic BP Type 80 120 Fetus Heart Rate Present Fetus Movement Comments OBI Flowsheet Date 02/21/2024 Card Score Blood Edema Fundus Height Fundus Units Glucose Ketones Leukocytes Nitrite Labor Signs Protein Cervic Dilation Cervic Effacement Cervic Station Type Weight in lbs Pre/Post Dialysis Refused 149.7234186123 BP Diastolic BP Location Tested BP Systolic [...] Type Weight in lbs Pre/Post Dialysis Refused 156.025733767468 BP Diastolic BP Location Tested BP Systolic [...] Type Weight in lbs Pre/Post Dialysis Refused 158.485037900142 BP Diastolic BP Location Tested BP Systolic BP Type 62 110 sitting Fetus Heart Rate Present A 150 Present Fetus Movement A Yes Comments dysuria-burning/urgency, sylvia ma [id number] Flowsheet Date 05/21/2024 Card Score Blood Edema [...] Weight in lbs Pre/Post Dialysis Refused Weight 160.345693735645 BP Diastolic BP Location Tested BP Systolic [...] Weight in lbs Pre/Post Dialysis Refused Weight 163.098661148992 BP Diastolic BP Location Tested BP Systolic BP Type 62 116 Fetus Heart Rate Present A 148 Present Fetus Movement A Yes Comments intermittent dizziness Flowsheet Date 06/25/2024 Card Score Blood Edema Fundus Height Fundus Units Glucose Ketones Leukocytes Nitrite Labor Signs Protein Cervic Dilation Cervic Effacement Cervic Station 32.5 cm none 1+ trace Type Weight in lbs Pre/Post Dialysis Refused Weight 165.74869542644 BP Diastolic BP Location Tested BP Systolic [...] Weight in lbs Pre/Post Dialysis Refused Weight 166.603901711486 BP Diastolic BP Location Tested BP Systolic [...] Weight in lbs Pre/Post Dialysis Refused Weight 166.455743362751 BP Diastolic BP Location Tested BP Systolic [...] Weight in lbs Pre/Post Dialysis Refused Weight 169.940216317171 BP Diastolic BP Location Tested BP Systolic [...] Method Maternal HG B and HCT Levels Ob Episode Information Episode Created Date Number of Fetuses Patient Bloodtype Patient rh Status Prepregnancy Weight lbs Domestic Partner Domestic Partner Phone Father Name Cotton Washer Status 01/21/20 24 1 CLOSED Fetus Data First Name Last Name Admitted to NICU Weight (g) Sex Living Outcome Pediatric Complications Fetus ID Race Codes Race Delivery Type 3600.15 9704 M Full Term 6405 Nayana Calculation Initial Nayana Date Initial Exam Date Initial Exam Provider Initial Ultrasound Date Last Menstrual Period Date Ultra Sound Weeks Gestation 0 Eighteen To Twenty Week Nayana Update Ultra Sound Date Fundal Height At Umbil Quickening Date Ultra Sound Latest Weeks Gestation Final Nayana Confirmed By Final Nayana Confirmed Date Final Nayana Date Ultra Sound Latest Days Gestation 0 0 Menstrual History Last Menstrual Date Menses Monthly On Bcp Conception Prior Menses Frequency Hcg Plus Date Menarche Onset Age Delivery Information Delivery Date Delivery Type Labor Anesthesia Weeks Gestation Incision Type Labor Labor Length Hrs Delivered By Post Complications Tubal Sterilization Discharge Date Comments 9 [facility] idural 40 Discharge Information Feeding Method Contraceptive Method Maternal HG B and HCT Levels Ob Episode Information Episode Created Date Number of Fetuses Patient Bloodtype Patient rh Status Prepregnancy Weight lbs Domestic Partner Domestic Partner Phone Father Name Cotton Washer Status 01/21/20 24 1 CLOSED Fetus Data First Name Last Name Admitted to NICU Weight (g) Sex Living Outcome Pediatric Complications Fetus ID Race Codes Race Delivery Type 2834.95 F Full Term 6407 Nayana Calculation Initial Nayana Date Initial Exam Date Initial Exam Provider Initial Ultrasound Date Last Menstrual Period Date Ultra Sound Weeks Gestation 0 Eighteen To Twenty Week Nayana Update Ultra Sound Date Fundal Height At Umbil Quickening Date Ultra Sound Latest Weeks Gestation Final Nayana Confirmed By Final Nayana Confirmed Date Final Nayana Date Ultra Sound Latest Days Gestation 0 0 Menstrual History Last Menstrual Date Menses Monthly On Bcp Conception Prior Menses Frequency Hcg Plus Date Menarche Onset Age Delivery Information Delivery Date Delivery Type Labor Anesthesia Weeks Gestation Incision Type Labor Labor Length Hrs Delivered By Post Complications Tubal Sterilization Discharge Date Comments 3 [facility] idural 40 breech Discharge Information Feeding Method Contraceptive Method Maternal HG B and HCT Levels Ob Episode Information Episode Created Date Number of Fetuses Patient Bloodtype Patient rh Status Prepregnancy Weight lbs Domestic Partner Domestic Partner Phone Father Name Cotton Washer Status 01/21/20 24 1 CLOSED Fetus Data First Name Last Name Admitted to NICU Weight (g) Sex Living Outcome Pediatric Complications Fetus ID Race Codes Race Delivery Type 3203.26 [id number] F Full Term [id number] Nayana Calculation Initial Nayana Date Initial Exam Date Initial Exam Provider Initial Ultrasound Date Last Menstrual Period Date Ultra Sound Weeks Gestation 0 Eighteen To Twenty Week Nayana Update Ultra Sound Date Fundal Height At Umbil Quickening Date Ultra Sound Latest Weeks Gestation Final Nayana Confirmed By Final Nayana Confirmed Date Final Nayana Date Ultra Sound Latest Days Gestation 0 0 Menstrual History Last Menstrual Date Menses Monthly On Bcp Conception Prior Menses Frequency Hcg Plus Date Menarche Onset Age Delivery Information Delivery Date Delivery Type Labor Anesthesia Weeks Gestation Incision Type Labor Labor Length Hrs Delivered By Post Complications Tubal Sterilization Discharge Date Comments 4 Regional-Ep idural 40 breech presentat ion Discharge Information Feeding Method Contraceptive Method Maternal HG B and HCT Levels
[2024-07-28 06:23] LABS: Hematocrit 33.9 % (36-47); Mean Corpuscular HGB Conc 33.6 g/dL (30-55); Mean Corpuscular Hemoglobin 28.6 pg (27-33); Mean Corpuscular Volume 85.2 fl (85-98); Mean Platelet Volume 11.2 fL (7.4-10.4); Platelet Count 138 10^3/cmm (157-399); Red Blood Count 3.98 10^6/uL (3.85-5.65); White Blood Count 7.32 10^3/uL (3.29-11.43)
--- NOTE | 2024-07-28 06:38 | PM.OPHPUD ---
Labor & Delivery H&P Update Date of Procedure: July 28, 2024 Date H&P Performed: 07/23/24 Changes to previous documentation: None Admission Diagnosis: 34-year-old -0-1-5 at 39 weeks presenting for a repeat section and bilateral tubal ligation Primary indication for procedure: History of section x 2 Planned procedure: Operation Date: 07/28/24 07:20 Proposed Procedures p Section Repeat(Not Applicable) - Tommy Archer MD Other information: The patient has had an unremarkable . There have been no concerns. Her due date is based on a first trimester ultrasound. Her blood type is O+. Her antibody screen is negative. Her Pap smear was negative. She passed her glucose screen. She is GBS negative. She is rubella immune. She elected not to have the chlamydia drug test wet prep performed. Related Problem List Diagnoses (1) 39 weeks gestation of : (2) History of : (3) Encounter for sterilization: A&P Assessment and plan (1) 39 weeks gestation of : We will proceed with a lower transverse section and an intraoperative bilateral tubal ligation. We have discussed the risks with the patient including the risks of bleeding, infection, and damage to intra-abdominal organs. We have also discussed the 1 and 100 chance of becoming after successful bilateral tubal ligation. She and her have no further questions and wished to proceed. Status: Acute (2) History of : Status: Acute (3) Encounter for sterilization: Status: Acute PDMP PDMP Reviewed: Not Reviewed
--- NOTE | 2024-07-28 06:48 | ANES.PREANE2 ---
Pre-Anesthetic Assessment Height/Weight: Height 5 ft 2 in Weight 167 lb Pulse BP O2 Del Method 110 H 101/66 Room Air 07/28/24 06:10 07/28/24 06:10 07/28/24 06:32 Preop Diagnosis: planned C section Operation Date: 07/28/24 07:20 Proposed Procedures p Section Repeat(Not Applicable) - Tommy Archer MD Was Beta Shabana taken within 24 hours: N/A Was Clonidine taken within 24 hours: N/A Last intake: Intake Last Liquid Date 07/27/24 Last Liquid Time 23:30 Last Solid Date 07/27/24 Last Solid Time 23:30 Social No alcohol and No tobacco Exam alert, oriented x 3, clear to auscultation bilaterally and regular rate & rhythm Airway Submandibular: within normal limits Cervical ROM: within normal limits Mallampati: Class II Dentition: full Anesthetic Plan ASA status: 2 Anesthesia: Regional (specify below) Other: Issues with anesthesia NPO since yesterday evening Labs from this morning reviewed and acceptable for spinal anesthesia denies and CP or SOB METS >4 planned for routine c section with spinal Medications/Allergies Home Medications ?Medication ?Instructions ?Recorded ?Confirmed ?Last Taken ?Type multivitamin 1 tab PO DAILY 12/31/23 07/28/24 07/27/24 12:00 History Allergies Allergy/AdvReac Type Severity Reaction Status Date / Time No Known Allergies Allergy Verified 07/28/24 06:02 [facility] Anesthesia Medical History No pertinent past medical history Surgical History History of 2 sections 2013 & 2022 (both breech presentation) x 3 between the two Hx of wisdom tooth extraction (~2005) Family History Denies family history of Colon cancer Ovarian cancer Diabetes Heart disease Hypercholesteremia Breast cancer Hypertension Uterine cancer Thyroid disease Stroke Social History Smoking and tobacco/nicotine status: never used tobacco/nicotine Alcohol intake: never Substance/Drug Use: never Lives independently: Yes Household members: spouse and children Marital status: Number of children: 5 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
[2024-07-28] MEDS: metoclopramide 5 mg/mL SDV 2 mL 10 MG IVP (06:50)
[2024-07-28] MEDS: famotidine 20 mg/2 mL INJ IVP (06:50)
[2024-07-28] MEDS: ceFAZolin 2,000 mg SDV 2000 MG IVP (06:56)
--- NOTE | 2024-07-28 08:04 | P.OP_ITS ---
Operative Report Date of procedure: July 28, 2024 Pre-op diagnosis: 1. 34-year-old 39-week female with a history of section x 2 2. Multigravida desiring sterilization Post-op diagnosis: Status post low-transverse section and intraoperative bilateral tubal ligation Procedure done: 1. Repeat low-transverse section 2. Bilateral tubal ligation using a modified Minh technique Specimens removed/disposition: 1. Male with a weight of 7 pounds 11 ounces and Apgars of 8 and 9 2. Bilateral fallopian tube segments with the right segment being tagged Pathology: 1. Bilateral fallopian tube segments with the right segment being tagged Surgeon: Tommy Archer MD Estimated blood loss (mL): 600 Complications: None Procedure: The patient was brought back to the operating room where she was prepped and draped in usual sterile fashion. Spinal anesthesia was found to be adequate. A lower transverse skin incision was then made with a #10 blade. I then dissected down to the underlying subcutaneous tissue until arriving at the prerectal fascia. The fascia was then nicked with the scalpel bilaterally. The fascial incisions were then carried laterally with Hansen scissors. Attention was then turned to the superior aspect of the incision which was grasped with tre barrientos and tented up away from the underlying rectus abdominis muscles. The muscles were then dissected away from the fascia manually, and later with Hansen scissors. Attention was then turned to the inferior aspect of the incision, and the fascia was dissected away from the underlying muscle in similar fashion. The rectus abdominis muscles were then spread manually. The peritoneum was entered manually. Excellent visualization of the uterus was noted. A lower transverse uterine incision was then made with a #10 blade. Upon arriving at the intrauterine cavity, the uterine incision was then extended manually. The infant was noted to be in vertex position. The baby was delivered without difficulty. After delivery of the head, the mouth and nose were suctioned at the site of the incision. There was no meconium. There was no nuchal cord. The baby was then completely delivered and placed on the abdomen. The cord was cut and clamped. The baby was then handed to the waiting nurse. The placenta was removed intact. The uterus was externalized. The intrauterine cavity was cleansed of any remaining debris. The uterine incision was reapproximated in 2 layers. The first layer was performed with 0 Vicryl in a running locked stitch. The second layer was an imbricating stitch also using 0 Vicryl. The uterus was replaced into the abdomen. The peritoneum was then irrigated with warm saline. I reexamined the uterine incision and found it to be hemostatic. The rectus abdominis muscles were then reapproximated using 0 Vicryl in a running stitch. The fascia was then reapproximated using 0 Vicryl in running stitch. The subcuticular stitch was then reapproximated using 0 Vicryl in a running stitch. With a running subcutaneous stitch using 4-0 Monocryl. A sterile dressing was placed. All counts were correct x2. Both the mother and baby were in stable condition.
--- NOTE | 2024-07-28 08:48 | ANE.PACU2 ---
Inpatient post-anesthesia follow up: Airway intact: Yes Vital signs: Temperature Pulse Rate 110 Respiratory Rate Blood Pressure 101/66 Pulse Oximetry Oxygen Delivery Me thod Room Air Oxygen Flow Rate Fraction of Inspir ed Oxygen Hydration adequate: Yes Nausea and vomiting: No Pain level: 1 Mental status: Baseline
[2024-07-28] MEDS: dextrose 5%-lactated ringers 1,000 ML 125 ML IV (09:00)
[2024-07-28] MEDS: ketorolac 30 mg/mL INJ IVP ×3 (09:25→21:02)
[2024-07-28] MEDS: docusate sodium 100 mg Capsule PO (21:03)
[2024-07-28] MEDS: ferrous sulfate EC 325 mg Tablet PO (21:03)
[2024-07-28 21:40] LABS: Hematocrit 30.9 % (36-47); Mean Corpuscular HGB Conc 33.3 g/dL (30-55); Mean Corpuscular Hemoglobin 28.9 pg (27-33); Mean Corpuscular Volume 86.8 fl (85-98); Mean Platelet Volume 11.7 fL (7.4-10.4); Platelet Count 119 10^3/cmm (157-399); Red Blood Count 3.56 10^6/uL (3.85-5.65); Red Cell Distribution Width 13.1 % (12.1-15.1); White Blood Count 8.71 10^3/uL (3.29-11.43)
[2024-07-29 04:05] VITALS: BP 101/57; PULSE 85
--- NOTE | 2024-07-29 07:33 | PM.OBGYDC ---
Discharge Providers [employer]ACHINE [employer] Date of Admission: 07/28/24 05:36 Date of Discharge: 07/29/24 Attending Provider at Admission: Tommy Archer MD Attending Provider at Discharge: Tommy Archer MD Primary Care Provider: Tejal Altamirano MD Diagnoses at Discharge Discharge Diagnosis (1) 39 weeks gestation of : Status: Acute (2) History of : Status: Acute (3) Encounter for sterilization: Status: Acute Reason for Visit Reason for Visit: Hospital Course Hospital Course The patient presented to the hospital for a scheduled repeat section and bilateral tubal ligation. The and tubal ligation were unremarkable. Her course has also been unremarkable. Her bleeding has been within normal limits. Her pain has been well-controlled. She passed gas last night. Her diet was advanced this morning. She has been breast-feeding well. There have been no concerns. Information Peripartum Data: Delivery Method: Physical Exam Narrative: She is in no acute distress Lungs are clear auscultation bilaterally Her heart has a regular rate and rhythm Her fundus is below the umbilicus and firm Her dressing is clean, dry and intact Her extremities have trace edema Urinary Catheter Management: Ribeiro: Cath Placed During This Visit: yes, but has since been removed by the nurse Reason for Continuing Indwelling Catheter: Decision to DC Catheter Urinary Catheter Date of Insertion: 07/28/24 Urinary Catheter Time of Insertion: 07:17 Date Urinary Catheter Removed: 07/28/24 Time Urinary Catheter Discontinued: 15:45 History History History 7 Term 5 0 Miscarriages/Ectopic 1 Living Children 5 Discharge Data Studies Completed and Pending Pending at discharge Category Date Time Status Pathology: Surgical [PTH] Routine Pth 07/28/24 10:00 Received Laboratory Results WBC 8.71 10^3/uL (3.29-11.43) 07/28/24 21:15 RBC 3.56 10^6/uL (3.85-5.65) L 07/28/24 21:15 Hgb 10.30 g/dL (11.27-16.99) L 07/28/24 21:15 Hct 30.9 % (36-47) L 07/28/24 21:15 MCV 86.8 fl (85-98) 07/28/24 21:15 MCH 28.9 pg (27-33) 07/28/24 21:15 MCHC 33.3 g/dL (30-55) 07/28/24 21:15 RDW 13.1 % (12.1-15.1) 07/28/24 21:15 Plt Count 119 10^3/cmm (157-399) L 07/28/24 21:15 MPV 11.7 fL (7.4-10.4) H 07/28/24 21:15 Blood Type O Positive 07/28/24 06:05 Rho(D) Type Rh positive 07/28/24 06:05 Antibody Screen Negative 07/28/24 06:05 Vitals Last Vital Signs Temp 97.9 F 07/28/24 16:30 Pulse 85 07/29/24 04:05 Resp 17 07/28/24 08:50 BP 101/57 07/29/24 04:05 Pulse Ox 99 07/28/24 12:55 O2 Del Method Room Air 07/28/24 08:50 Results Labs OB ([facility]): Obstetrics 12/31/23 Blood Type O Positive 07/28/24 Antibody Screen Negative 07/28/24 Hct, (36-47) 30.9 % L 07/28/24 Hgb, (11.27-16.99) 10.30 g/dL L 07/28/24 Rho(D) Type Rh positive 07/28/24 Plt Count, (157-399) 119 10^3/cmm L 07/28/24 TSH, (0.27-4.20) 1.49 uIU/mL 05/22/23 Ser , Semi-Qnt 117250.00 mIU/mL 12/31/23 HCG, Qual, (Negative) Positive H 12/31/23 Discharge Plan Discharge Patient Disposition: Home Condition: Stable Prescriptions: New ibuprofen 800 mg Tablet 800 mg PO TID Qty: 45 0RF hydrocodone-acetaminophen 5-325 mg Tablet 1 tab PO Q6H PRN (Reason: Moderate To Severe Pain) Qty: 28 0RF docusate sodium 100 mg Capsule 100 mg PO BID Qty: 14 0RF Continued multivitamin Tablet 1 tab PO DAILY Discharge Orders: Discharge Order (Routine); Ordered 07/29/24 Ordered By: Tommy Archer Referrals: Tommy Archer MD [Physician, Family Practice] - 7-10 days Discharge Diet: Usual diet Discharge Activity: Limit activity as instructed Patient Instructions: Depression (DC), Opioid Safety (DC), Preeclampsia and Eclampsia After Delivery (GEN), Hemorrhage (DC), OB - Gianni/Mikey, OB Discharge Report, OB Food/Drug Interaction Guide, OB Care at Home, Opioid Safety, Abnormal Bleeding Discharge Attestations [employer] Time Spent in Discharge Care*: less than 30 min Coding Level of Care Code Acute Code for Chg Fwd Diagnoses 39 weeks gestation of Z3A.39 History of Z98.891 Encounter for sterilization Z30.2
[2024-07-29] MEDS: ferrous sulfate EC 325 mg Tablet PO (08:01)
[2024-07-29] MEDS: PRENATAL VIT NO.130/IRON/FOLIC 1 EACH TABLET PO (08:01)
[2024-07-29] MEDS: HYDROcodone-acetaminophen 5-325 mg Tablet PO (08:01)
[2024-07-29] MEDS: docusate sodium 100 mg Capsule PO (08:02)
[2024-07-29] MEDS: ibuprofen 800 mg tablet PO ×2 (10:01→15:02)
[2024-07-29 10:02] VITALS: BP 98/55; PULSE 83
[2024-07-29 10:08] VITALS: TEMP 36.6
[2024-07-29 16:00] VITALS: TEMP 36.8
[2024-07-29 16:01] VITALS: BP 99/59; PULSE 92
[2024-07-29 16:51] VITALS: BP 99/59; PULSE 92; RESP 17; TEMP 36.8
== END 2024-07-29 17:09 | disposition home or self-care (01) | DRG 785 ==
PROVIDERS: Admitting Provider Family Medicine; PCP Family Medicine; Visit Provider Family Medicine
PROC: 10D00Z1 Extraction of Products of Conception, Low, Open Approach (ICD-10-PCS; CPT 59514; principal; 2024-07-28 07:00)
DX: O34.211 Maternal care for low transverse scar from previous cesarean delivery (principal); N85.8 Other specified noninflammatory disorders of uterus; Z3A.39 39 weeks gestation of pregnancy; Z37.0 Single live birth
CPT/HCPCS: 36415; 51702; 59025; 59409; 85027; 86850; 86900; 88302; 96374; 96376; J0690; J1885; J2274; J2371; J2405; J2765; J3010; J3490; J7121; J9999